=== PATIENT | female | born 1985 | race Caucasian/White ===

== ENCOUNTER 2018-10-07 13:37 | Inpatient (IN) | payer OTHER ==
[~2018-10-07] VITALS: Ht 154.9 cm; Wt 65.9 kg
--- NOTE | 2018-10-07 15:40 | NUR ---
Received patient from [facility] via gurney assisted with 2 maintenance carpenter. Patient is alert, awake and verbally responsive. Respiration are even and non labored. Complaining of abdominal pain 7 at this time will notify MD. Reorient patient is her room and bed function. Call light within reach. Will continue to monitor.
--- NOTE | 2018-10-07 16:14 | HP ---
Date/Time of Note Date/Time of Note DATE: 10/07/18 TIME: 16:11 Assessment/Plan VTE Prophylaxis Pharmacological prophylaxis: heparin Assessment/Plan Hospital Course 32 yo female with cholelithiasis and possible choledocholithiasisis - Will perform MRCP to guide intervention and confirm diagnosis - Given GB wall thickenign will give abx though not clearly infected - GI consulted HPI/ROS Admit Date/Time Admit Date/Time Oct 07, 2018 at 15:40 Hx of Present Illness 32 yo female tranferred for management of gall stones Has known cholelithiasis. Sounds like 2 years ago was admitted to a hospital for this however no surgery done. Has been well since. Over past week has developed RUQ pain and tenderness. Went to OSH ED were labs normal but RUQ showed gall bladder wall thickening, mildly dilated CBD. Transferred here for management PMH/Family/Social Past Medical History Medical History: no pertinent history, gallstones Past Surgical History Past Surgical Hx: no surgical history Social History Alcohol Use: none Drug Use: none Exam/Review of Systems Exam Constitutional: alert, oriented, well developed Psych: no complaints, nl mood/affect Head: normocephalic, atraumatic Eyes: nl conjunctiva, EOMI, nl lids, nl sclera, PERRL ENMT: nl external ears & nose, nl lips & teeth, nl nasal mucosa & septum Neck: supple, non-tender Respiratory: clear to auscultation, normal air movement Cardiovascular: regular rate and rhythm, nl pulses Gastrointestinal: soft, nl liver, spleen, non-tender Musculoskeletal: nl extremities to inspection Extremities: normal pulses Neurological: CUSTOMER DEVELOPMENT MANAGER II-XII intact, nl mental status, nl speech, nl strength Skin: nl turgor; No rash or lesions Lymph: nl lymph nodes JEFFERY MEADE MD Oct 07, 2018 16:14
[2018-10-07] MEDS ORDERED: NACL 0.9% 3 ML SYG IV SCH (16:30)
--- NOTE | 2018-10-07 16:45 | NUR ---
Pt. left the unit going to MRI with Lisa HOANG via [facility] assisted with transporter. Pt. is alert awake and verbally responsive. at bedside
[2018-10-07 16:51] VITALS: BP 102/61; PULSE 83; RESP 18
[2018-10-07] MEDS: HYDROmorphONE 0.5 MG/0.5 ML SYG IV PRN ×2 (17:31→22:35)
[2018-10-07] MEDS: SOD CHLORIDE 0.45% 1,000 ML IV SCH (17:37)
[2018-10-07] MEDS: CEFTRIAXONE 1 GM/50 ML (PMX) 50 ML IVPB SCH (17:37)
[2018-10-07 17:50] VITALS: Ht 154.9 cm; Wt 65.9 kg
--- NOTE | 2018-10-07 18:32 | NUR ---
Received a call from Dr. Quan and give an order to cancel the NPO order and consent for laparoscopic tomorrow. Addendum: 10/07/18 at 1854 by STEFF GAUTHIER RN correction Received a call from Dr. Walton not from Dr. Quan.
--- NOTE | 2018-10-07 18:48 | NUR ---
No significant changes noted. Pain medication given as ordered. Effective and tolerated well. head to toe skin assessment done. Will endorse accordingly
[2018-10-07 20:00] VITALS: BP 103/61; PULSE 102; RESP 18
[2018-10-08 02:00] VITALS: BP 93/56; PULSE 86; RESP 18
--- NOTE | 2018-10-08 07:46 | CONS ---
Date/Time of Note Date/Time of Note DATE: 10/08/18 TIME: 07:43 Assessment/Plan Assessment/Plan Assessment/Plan Cholelithiasis and choledocholithiasis. Plan: Patient will need ERCP. We will arrange for laparoscopic cholecystectomy after CBD cleared. I will follow with you Result Diagram: 10/08/18 0430 10/08/18 0430 Results 24hrs Laboratory Tests Test 10/08/18 04:30 White Blood Count 7.6 Red Blood Count 3.38 L Hemoglobin 9.9 L Hematocrit 30.0 L Mean Corpuscular Volume 88.8 Mean Corpuscular Hemoglobin 29.3 Mean Corpuscular Hemoglobin Concent 33.0 Red Cell Distribution Width 15.6 H Platelet Count 138 L Mean Platelet Volume 12.6 H Immature Granulocytes % 0.400 Neutrophils % 68.3 Lymphocytes % 14.4 L Monocytes % 16.3 H Eosinophils % 0.3 Basophils % 0.3 Nucleated Red Blood Cells % 0.0 Immature Granulocytes # 0.030 Neutrophils # 5.2 Lymphocytes # 1.1 Monocytes # 1.2 H Eosinophils # 0.0 Basophils # 0.0 Nucleated Red Blood Cells # 0.0 Sodium Level 137 Potassium Level 3.8 Chloride Level 105 Carbon Dioxide Level 27 Anion Gap 5 Blood Urea Nitrogen 3 L Creatinine 0.56 Est Glomerular Filtrat Rate mL/min > 60 Glucose Level 102 Calcium Level 8.6 Total Bilirubin 0.4 Direct Bilirubin 0.00 Indirect Bilirubin 0.4 Aspartate Amino Transf (AST/SGOT) 19 Alanine Aminotransferase (ALT/SGPT) 22 Alkaline Phosphatase 62 Total Protein 6.4 Albumin 3.4 Globulin 3.00 Albumin/Globulin Ratio 1.13 Consultation Date/Type/Reason Admit Date/Time Oct 07, 2018 at 15:40 Date of Consultation: Oct 08, 2018 Type of Consult General surgery Reason for Consultation Gallstones and choledocholithiasis Hx of Present Illness The patient is an otherwise healthy 32-year-old female who has known gallstones. She is transferred to this facility for continuance of care. There is a suspicion of choledocholithiasis. The patient underwent MRCP shortly after admission which showed multiple common duct stones as well as gallstones. She has had no fevers, chills or jaundice. Her LFTs are normal. Constitutional: no complaints Eyes: no complaints ENT: no complaints Respiratory: no complaints Cardiovascular: no complaints Gastrointestinal: pain (Epigastrium) Genitourinary: no complaints Musculoskeletal: no complaints Skin: no complaints Neurologic: no complaints Endocrine: no complaints Lymphatic: no complaints Psychological: no complaints Past Medical History Medical History: no pertinent history, gallstones Medications Current Medications Sodium Chloride 1,000 ml @ 75 mls/hr [id number] IV Last administered on 10/07/18at 17:37; Admin Dose 75 MLS/HR; Start 10/07/18 at 16:14 IV Flush (NS 3 ml) 3 ml PER PROTOCOL IV ; Start 10/07/18 at 16:30 Hydromorphone HCl (Dilaudid) 0.5 mg Q4H PRN IV SEVERE PAIN LEVEL 7-10 Last administered on 10/07/18at 22:35; Admin Dose 0.5 MG; Start 10/07/18 at 16:30 Ceftriaxone Sodium 50 ml @ 100 mls/hr Q24H IVPB Last administered on 10/07/18at 17:37; Admin Dose 100 MLS/HR; Start 10/07/18 at 16:30 Allergies: Coded Allergies: No Known Allergies (Verified Allergy, Unknown, 10/07/18) Past Surgical History Past Surgical Hx: no surgical history Family History Significant Family History: no pertinent family hx Social History Alcohol Use: none Smoking Status: Never smoker Drug Use: none Exam/Review of Systems Vital Signs Vitals Vital Signs Date Temp Pulse Resp B/P (MAP) Pulse Ox O2 O2 Flow FiO2 Time Delivery Rate 10/08/18 98.3 86 18 93/56 (68) 97 Room Air 02:00 Intake and Output 10/07/18 10/07/18 10/08/18 1414:59 22:59 06:59 IntakeIntake Total 200 ml 900 ml BalanceBalance 200 ml 900 ml Exam Constitutional: alert, oriented Psych: no complaints Head: normocephalic Eyes: nl conjunctiva ENMT: nl external ears & nose Neck: supple Respiratory: clear to auscultation Cardiovascular: regular rate and rhythm Gastrointestinal: soft Musculoskeletal: nl extremities to inspection Neurological: other (Speaks only [place]) Skin: nl turgor Lymph: nl lymph nodes Medications Medications Current Medications Sodium Chloride 1,000 ml @ 75 mls/hr [id number] IV Last administered on 10/07/18at 17:37; Admin Dose 75 MLS/HR; Start 10/07/18 at 16:14 IV Flush (NS 3 ml) 3 ml PER PROTOCOL IV ; Start 10/07/18 at 16:30 Hydromorphone HCl (Dilaudid) 0.5 mg Q4H PRN IV SEVERE PAIN LEVEL 7-10 Last administered on 10/07/18at 22:35; Admin Dose 0.5 MG; Start 10/07/18 at 16:30 Ceftriaxone Sodium 50 ml @ 100 mls/hr Q24H IVPB Last administered on 10/07/18at 17:37; Admin Dose 100 MLS/HR; Start 10/07/18 at 16:30 NGOZI URBAN MD Oct 08, 2018 07:46
[2018-10-08 07:50] VITALS: BP 88/53; PULSE 69; RESP 16
[2018-10-08] MEDS: ACETAMINOPHEN 325 MG TAB PO PRN (09:58)
[2018-10-08] MEDS: SOD CHLORIDE 0.45% 1,000 ML IV SCH ×2 (11:36→17:46)
[2018-10-08 14:36] VITALS: BP 105/59; PULSE 67; RESP 16
--- NOTE | 2018-10-08 14:38 | PN ---
Date/Time of Note Date/Time of Note DATE: 10/08/18 TIME: 14:37 Assessment/Plan VTE Prophylaxis Risk score (from Ns)>0 risk: 2 SCD applied (from Ns): Yes Pharmacological prophylaxis: heparin Lines/Catheters IV C[facility]ter [facility] (from [facility]): Peripheral IV Urinary Cath still in place: No Assessment/Plan Hospital Course 32 yo female with cholelithiasis and choledocholithiasisis - ERCP - Given GB wall thickenign will give abx though not clearly infected - GI consulted, plan for ERCP Result Diagram: 10/08/18 0430 10/08/18 0430 Results 24hrs Laboratory Tests Test 10/08/18 04:28 10/08/18 04:30 Iron Level 14 L Total Iron Binding Capacity 300 Percent Iron Saturation 5 L Ferritin 81.8 White Blood Count 7.6 Red Blood Count 3.38 L Hemoglobin 9.9 L Hematocrit 30.0 L Mean Corpuscular Volume 88.8 Mean Corpuscular Hemoglobin 29.3 Mean Corpuscular Hemoglobin Concent 33.0 Red Cell Distribution Width 15.6 H Platelet Count 138 L Mean Platelet Volume 12.6 H Immature Granulocytes % 0.400 Neutrophils % 68.3 Lymphocytes % 14.4 L Monocytes % 16.3 H Eosinophils % 0.3 Basophils % 0.3 Nucleated Red Blood Cells % 0.0 Immature Granulocytes # 0.030 Neutrophils # 5.2 Lymphocytes # 1.1 Monocytes # 1.2 H Eosinophils # 0.0 Basophils # 0.0 Nucleated Red Blood Cells # 0.0 Sodium Level 137 Potassium Level 3.8 Chloride Level 105 Carbon Dioxide Level 27 Anion Gap 5 Blood Urea Nitrogen 3 L Creatinine 0.56 Est Glomerular Filtrat Rate mL/min > 60 Glucose Level 102 Hemoglobin A1c 5.1 Calcium Level 8.6 Total Bilirubin 0.4 Direct Bilirubin 0.00 Indirect Bilirubin 0.4 Aspartate Amino Transf (AST/SGOT) 19 Alanine Aminotransferase (ALT/SGPT) 22 Alkaline Phosphatase 62 Total Protein 6.4 Albumin 3.4 Globulin 3.00 Albumin/Globulin Ratio 1.13 Subjective 24 Hr Interval Summary Free Text/Dictation MRCP shows choledocholithiasis, awaiting ERCP Exam/Review of Systems Vital Signs Vitals Vital Signs Date Temp Pulse Resp B/P (MAP) Pulse Ox O2 O2 Flow FiO2 Time Delivery Rate 10/08/18 98.2 69 16 88/53 (65) 95 Room Air 07:50 Intake and Output 10/07/18 10/07/18 10/08/18 1414:59 22:59 06:59 IntakeIntake Total 200 ml 900 ml BalanceBalance 200 ml 900 ml Exam Constitutional: alert, oriented, well developed Psych: no complaints, nl mood/affect Head: normocephalic, atraumatic Eyes: nl conjunctiva, EOMI, nl lids, nl sclera, PERRL ENMT: nl external ears & nose, nl lips & teeth, nl nasal mucosa & septum Neck: supple, non-tender Respiratory: clear to auscultation, normal air movement Cardiovascular: regular rate and rhythm, nl pulses Gastrointestinal: soft, nl liver, spleen, non-tender Musculoskeletal: nl extremities to inspection, nl gait and stance Extremities: normal pulses Neurological: QLIKVIEW DEVELOPER II-XII intact, nl mental status, nl speech, nl strength Skin: nl turgor; No rash or lesions Lymph: nl lymph nodes Medications Medications Current Medications Sodium Chloride 1,000 ml @ 75 mls/hr [id number] IV Last administered on 10/08/18at 11:36; Admin Dose 75 MLS/HR; Start 10/07/18 at 16:14 IV Flush (NS 3 ml) 3 ml PER PROTOCOL IV ; Start 10/07/18 at 16:30 Hydromorphone HCl (Dilaudid) 0.5 mg Q4H PRN IV SEVERE PAIN LEVEL 7-10 Last administered on 10/07/18at 22:35; Admin Dose 0.5 MG; Start 10/07/18 at 16:30 Ceftriaxone Sodium 50 ml @ 100 mls/hr Q24H IVPB Last administered on 10/07/18 at 17:37; Admin Dose 100 MLS/HR; Start 10/07/18 at 16:30 Acetaminophen (Tylenol Tab) 650 mg Q4H PRN PO MILD PAIN(1-3)OR ELEVATED TEMP Last administered on 10/08/18at 09:58; Admin Dose 650 MG; Start 10/08/18 at 09:30 Ferric Sodium Gluconate Complex 125 mg/Sodium Chloride 100 ml @ 100 mls/hr DAILY@1300 IVPB ; Start 10/09/18 at 13:00; Stop 10/11/18 at 13:59; Status JEFFERY GARNICA MD Oct 08, 2018 14:38
[2018-10-08] MEDS: HYDROmorphONE 0.5 MG/0.5 ML SYG IV PRN ×2 (15:15→20:11)
--- NOTE | 2018-10-08 15:48 | CONS ---
DATE OF ADMISSION: 10/07/2018 DATE OF CONSULTATION: TYPE OF CONSULTATION: Gastroenterology. Dear Dr. Blue: Thank you for asking me to see Mrs. Jordan in GI consultation. HISTORY OF PRESENT ILLNESS: The patient, as you know, is a 32-year-old female who developed abdominal pain mostly in the right upper quadrant. A week ago, she went to [facility]. From there, she was transferred to this hospital because of the insurance reasons. Nausea but no vomiting, no GI bleeding, no fever, no jaundice. She did a similar history of pain in the past. The patient is a poor historian. PAST MEDICAL HISTORY: No surgeries. REVIEW OF SYSTEM: Unremarkable. SOCIAL HISTORY: The patient does not smoke or drink. PHYSICAL EXAMINATION: GENERAL: The patient is a 32-year-old female who at this time she is alert. She is average built. VITAL SIGNS: She is afebrile. CARDIOVASCULAR: Normal heart sounds. RESPIRATORY: Normal breath sounds. ABDOMEN: Showed evidence of a soft abdomen with a very minimal right upper quadrant tenderness. VITAL SIGNS: Temperature is 98.2, blood pressure 88/53. LABORATORY WORKUP: WBC 7600, hemoglobin 9.9. BUN 33, creatinine 0.56. Total bilirubin 0.4, AST is 19, ALT 22, alkaline phosphatase 62. CLINICAL IMPRESSION: The patient has acute cholecystitis with choledocholithiasis. PLAN: At this time, I recommend ERCP and I described the procedure through an interpreter deaf both from the patient and the patient's . They understood and they agreed for ERCP. Once again, Dr. Blue, thank you for this consultation. Dictated By: RADHA COLIN/DELIO Conf#: [id number] DID#: [id number] CC: ELIF SHIRLEY; PHILLY BLUE MD;*EndCC*
[2018-10-08] MEDS: CEFTRIAXONE 1 GM/50 ML (PMX) 50 ML IVPB SCH (16:08)
[2018-10-08] MEDS: SOD FERRIC GLUC COMPLX 125 MG in SOD CHLORIDE 0.9% 100 ML IVPB SCH (16:57)
--- NOTE | 2018-10-08 18:41 | NUR ---
Patient alert oriented x4. patient's at bedside and able to translate. patient complains of headache and pain, medication given for pain management. patient will be going to ERCP procedure tomorrow, PT and INR value reported to MD, no changes will be made. patient will be placed NPO after midnight and currently on clear liquid diet and tolerating well. will endorse to hourly shift manager nurse. Fall precaution in place, call light within reach.
[2018-10-08 21:06] VITALS: BP_SYST 107; BP_SYST 87; BP_DIAS 51; BP_DIAS 68; PULSE 60; RESP 20
[2018-10-09] VITALS (15 sets, daily range): BP systolic 82–136; BP diastolic 47–77; PULSE 68–85; RESP 18–25
[2018-10-09] MEDS: SOD CHLORIDE 0.45% 1,000 ML IV SCH ×2 (06:21→20:39)
--- NOTE | 2018-10-09 07:34 | QN ---
Documentation Comment Clinically stable Awaiting ERCP NGOZI URBAN MD Oct 09, 2018 07:34
[2018-10-09] MEDS: HYDROmorphONE 0.5 MG/0.5 ML SYG IV PRN ×2 (11:15→20:45)
[2018-10-09] MEDS: PIPER-TAZO 3.375 GM IV (PMX) 100 ML IVPB SCH ×3 (12:45→23:36)
--- NOTE | 2018-10-09 12:47 | PN ---
Date/Time of Note Date/Time of Note DATE: 10/09/18 TIME: 12:47 Objective Vitals Vital Signs Date Temp Pulse Resp B/P (MAP) Pulse Ox O2 O2 Flow FiO2 Time Delivery Rate 10/09/18 98.3 77 18 121/67 99 08:00 (85) 10/08/18 Room Air 14:36 Intake and Output 10/08/18 10/08/18 10/09/18 1515:00 23:00 07:00 IntakeIntake Total 100 ml 690 ml 900 ml BalanceBalance 100 ml 690 ml 900 ml Results Result Diagram: 10/08/18 0430 10/08/18 043 Medications Medications Current Medications Sodium Chloride 1,000 ml @ 75 mls/hr [id number] IV Last administered on 10/09/18at 06:21; Admin Dose 75 MLS/HR; Start 10/07/18 at 16:14 IV Flush (NS 3 ml) 3 ml PER PROTOCOL IV ; Start 10/07/18 at 16:30 Hydromorphone HCl (Dilaudid) 0.5 mg Q4H PRN IV SEVERE PAIN LEVEL 7-10 Last administered on 10/09/18at 11:15; Admin Dose 0.5 MG; Start 10/07/18 at 16:30 Acetaminophen (Tylenol Tab) 650 mg Q4H PRN PO MILD PAIN(1-3)OR ELEVATED TEMP Last administered on 10/08/18at 09:58; Admin Dose 650 MG; Start 10/08/18 at 09:30 Ferric Sodium Gluconate Complex 125 mg/Sodium Chloride 100 ml @ 100 mls/hr DAILY@1300 IVPB Last administered on 10/08/18at 16:57; Admin Dose 100 MLS/HR; Start 10/08/18 at 17:00; Stop 10/10/18 at 13:59 Piperacillin Sod/ Tazobactam Sod 100 ml @ 200 mls/hr Q6 IVPB ; Start 10/09/18 at 12:00 VTE Prophylaxis Risk score (from Nsg)>0 risk: 1 SCD applied (from Nsg): Yes Lines/Catheters IV Catheter Type: [place] in Place: No Assessment/Plan Hospital Course Subjective Patient still having abdominal pain and headache Objective Physical exam General: Patient is laying in bed and answers questions appropriately Mentation: Patient is alert and oriented 4, Head: Normocephalic atraumatic Eyes: EOMI, pupils reactive to light Neck: Supple, nontender, midline Respiratory: Clear to auscultation bilaterally Cardiovascular: regular rate, no obvious murmurs Gastrointestinal: Right upper quadrant tenderness palpation, bowel sounds heard. Neurological: Moves all extremities spontaneously Skin: No new skin lesions Assessment and plan Cholelithiasis with choledocholithiasis -GI on board -ERCP planned -Some gallbladder wall thickening, and on antibiotics -General surgery on board Cholelithiasis -No clear cholecystitis, however patient clearly having choledocholithiasis due to multiple stones -General surgery for possible of gallbladder after ERCP questionable Abdominal pain -Secondary to above cholelithiasis and choledocholithiasis Anemia -Mild, stable, monitor -Iron deficiency, given iron supplements Disposition -ERCP today FANTASMA FIGUEROA Oct 09, 2018 12:47
--- NOTE | 2018-10-09 13:50 | PREAC ---
Date/Time of Note Date/Time of Note DATE: 10/09/18 TIME: 13:45 Anesthesia Eval and Record Evaluation Time Pre-Procedure Interview DATE: 10/09/18 TIME: 13:45 Age 32 Sex female NPO: 8 hrs Preoperative diagnosis Cholelithiasis Planned procedure ERCP Past Medical History Past Medical History: Includes Heme: Anemia, Thrombocytopenia Surgery & Anesthesia Issues No known issue Meds Anticoagulation: No Beta Asif within 24 hr: No Reason Beta Asif not given: Pt. not on B-Asif Current Medications Sodium Chloride 1,000 ml @ 75 mls/hr [id number] IV Last administered on 10/09/18at 06:21; Admin Dose 75 MLS/HR; Start 10/07/18 at 16:14 IV Flush (NS 3 ml) 3 ml PER PROTOCOL IV ; Start 10/07/18 at 16:30 Hydromorphone HCl (Dilaudid) 0.5 mg Q4H PRN IV SEVERE PAIN LEVEL 7-10 Last administered on 10/09/18at 11:15; Admin Dose 0.5 MG; Start 10/07/18 at 16:30 Acetaminophen (Tylenol Tab) 650 mg Q4H PRN PO MILD PAIN(1-3)OR ELEVATED TEMP Last administered on 10/08/18at 09:58; Admin Dose 650 MG; Start 10/08/18 at 09:30 Ferric Sodium Gluconate Complex 125 mg/Sodium Chloride 100 ml @ 100 mls/hr DAILY@1300 IVPB Last administered on 10/08/18at 16:57; Admin Dose 100 MLS/HR; Start 10/08/18 at 17:00; Stop 10/10/18 at 13:59 Piperacillin Sod/ Tazobactam Sod 100 ml @ 200 mls/hr Q6 IVPB Last administered on 10/09/18at 12:45; Admin Dose 200 MLS/HR; Start 10/09/18 at 12:00 Meds reviewed: Yes Allergies Coded Allergies: No Known Allergies (Verified Allergy, Unknown, 10/07/18) Allergies Reviewed: Yes Labs/Studies Labs Reviewed: Reviewed by anesthesiologist Result Diagram: 10/08/18 0430 10/08/18 0430 test: Negative Studies: ECG (n/a), CXR (n/a) Pre-procedure Exam Last vitals Vital Signs Date Temp Pulse Resp B/P (MAP) Pulse Ox O2 O2 Flow FiO2 Time Delivery Rate 10/09/18 98.3 77 18 121/67 99 08:00 (85) 10/08/18 Room Air 14:36 Airway: Adequate mouth opening, Adequate thyromental dist Mallampati: Mallampati II Teeth: Normal Lung: Normal Heart: Normal ASA Physical Status ASA physical status: 2 Emergency: E Planned Anesthetic General/MAC: ETT Planned Pain Management Parenteral pain med Pre-operative Attestations Prior to commencing anesthesia and surgery, the patient was re-evaluated, there was verification of: *The patient's identity *The results of appropriate recent lab work and preoperative vital signs *The above evaluation not changing prior to induction *Anesthetic plan, risk benefits, alternative and complications discussed with patient/family; questions answered; patient/family understands, accepts and wishes to proceed. KAITLIN BAEZA MD Oct 09, 2018 13:50
[2018-10-09] MEDS ORDERED: ROCURONIUM 50 MG INJ ONE (13:54)
[2018-10-09] MEDS ORDERED: CEFAZOLIN 1 GM INJ ONE (13:54)
[2018-10-09] MEDS ORDERED: FENTAnyl 50 MCG/ML VIAL ONE (13:54)
[2018-10-09] MEDS ORDERED: MIDAZOLAM 1 MG/ML 2 ML INJ ONE (13:54)
[2018-10-09] MEDS ORDERED: PROPOFOL 20 ML ONE (13:54)
[2018-10-09] MEDS ORDERED: ONDANSETRON 4 MG INJ IV PRN ×2 (14:00→22:00)
[2018-10-09] MEDS ORDERED: MEPERIDINE 25 MG INJ IV PRN (14:00)
[2018-10-09] MEDS ORDERED: HYDROmorphONE 1 MG/5 ML IV SYRINGE IV PRN ×3 (14:00)
[2018-10-09] MEDS ORDERED: LABETALOL HCL 20MG INJ IV PRN (14:00)
[2018-10-09] MEDS ORDERED: METOCLOPRAMIDE 10 MG INJ IV PRN (14:00)
[2018-10-09] MEDS ORDERED: DIPHENHYDRAMINE 50 MG INJ IV PRN (14:00)
[2018-10-09] MEDS ORDERED: FENTAnyl 50 MCG/ML VIAL IV PRN ×3 (14:00)
[2018-10-09] MEDS ORDERED: hydrALAzine 20 MG INJ IV PRN (14:00)
[2018-10-09] MEDS ORDERED: EPHEDrine SULFATE 50 MG/5 ML SYG IV PRN (14:00)
[2018-10-09] MEDS ORDERED: LIDOCAINE 2% (SDV) 5 ML INJ ONE (15:30)
[2018-10-09] MEDS ORDERED: NEOSTIGMINE 3 MG/3 ML SYRINGE ONE (15:30)
[2018-10-09] MEDS ORDERED: ONDANSETRON 4 MG INJ ONE (15:30)
[2018-10-09] MEDS ORDERED: GLYCOPYRROLATE 1 MG INJ ONE (15:30)
--- NOTE | 2018-10-09 15:34 | OPR ---
Date/Time of Note Date/Time of Note DATE: 10/09/18 TIME: 15:31 Operative Report Procedure Date: Oct 09, 2018 Preoperative Diagnosis cbd stones Postoperative Diagnosis cbd stones Operation/Procedure Performed ercp sphincterotomy cbd stent placement Surgeon see signature line Enterprise Solutions Architect none Anesthesia Type: general Anesthesiologist: BRUNILDA REICH MD Estimated Blood Loss: none Transfusion none Specimen none Grafts/Implants none Tubes/Drains none Complications none Pt Condition Post Procedure: stable Disposition: PACU Indications cbd stones Procedure Description ercp done sphincterotomy done stones could not be removed despite balloon sweepin and lithotrypsy RADHA NELSON MD Oct 09, 2018 15:34
--- NOTE | 2018-10-09 15:48 | NUR ---
NURSING RR RECEIVED PT FROM OR S/P ERCP NOT IN ANY DISTRESS .PT ABDOMEN SOFT AND NOT DISTENDED .IV TO L AC G20 NEEDLE WITH LR INFUSING WELL .DENIES [place] PAIN AT THIS MOMENT .
--- NOTE | 2018-10-09 15:54 | PAC ---
Date/Time of Note Date/Time of Note DATE: 10/09/18 TIME: 15:54 Post-Anesthesia Notes Post-Anesthesia Note Last documented vital signs Vital Signs Date Temp Pulse Resp B/P (MAP) Pulse Ox O2 O2 Flow FiO2 Time Delivery Rate 10/09/18 98.3 77 18 121/67 99 08:00 (85) 10/08/18 Room Air 14:36 Activity: WNL Respiratory function: WNL Cardiovascular function: WNL Mental status: Baseline Pain reasonably controlled: Yes Hydration appropriate: Yes Nausea/Vomiting absent: Yes Comments P:126/56,pulse:78, spo2:100%, T:98,8 BRUNILDA REICH MD Oct 09, 2018 15:54
--- NOTE | 2018-10-09 16:12 | NUR ---
SS Note: Consult Pt's spouse Robbie Tsai contacted this board writer. He stated he has taken time off work due to pt's hospitalization and is requesting a letter for his job stating that his has been hospitalized and that he's been at bedside caring for spouse during hospitalization. [place] notified attending Dr. Parker who will assist with providing letter. Addendum: 10/10/18 at 1033 by LUIS NELSON CALEB called Dr. Parker's office, it is closed d/t holiday today. ENVIRONMENTAL SCIENCE INSTRUCTOR to leave handoff for weekday SW to endorse letter. Addendum: 10/10/18 at 1418 by LUIS NELSON ENVIRONMENTAL SCIENCE INSTRUCTOR spoke with Dr. Parker who states he provided pt with note on a prescription pad.
--- NOTE | 2018-10-09 16:33 | GILP ---
DATE OF PROCEDURE: PROCEDURE: ERCP. PREOPERATIVE DIAGNOSIS: Choledocholithiasis. POSTOPERATIVE DIAGNOSIS: Choledocholithiasis. DESCRIPTION OF PROCEDURE: After the informed written consent was obtained, the patient was asked to lie on the left lateral side. The patient was intubated by anesthesiologist, Dr. Aviles. While the patient was in prone position, Olympus video side-viewing duodenoscope was inserted into the orophary nx, then into the esophagus, subsequently into the stomach and then into the duodenum. The duodenum appeared normal. The ampulla was located in normal location with normal morphology with some edema a nd some erythema noted at the papillary opening. At this time by using the Dreamtome, cannulation of the common bile duct was performed. Multiple large common bile duct stones were noted. Most of the stones were triangular and large stones. Sphincterotomy was performed. About a 12 mm cut of the am [place]cca was made. Following this cut, the Dreamtome was removed. A balloon was inserted over the guid e wire. Attempts were made to remove the stones, but they were not able to be removed because the st ones were large and they were triangular in shape. Subsequently, a lithotripter was inserted over th e wire into the common hepatic duct and attempts were made to grab the common bile duct stones and th ey could not be grabbed by the stones were large. At this time, the lithotripter was removed. Ballo on was inserted again. Balloon sweeping was attempted again and then it failed again. At this time, 10 x 7 Perry type of endobiliary prosthesis was inserted into the common bile duct across the am mecca into the duodenum and the procedure was terminated. PLAN: I recommend proceed with a laparoscopic cholecystectomy and we can remove the stones at a late r date. Dictated By: RADHA NELSON MD NC/NTS Conf#: [id number] DID#: [id number] CC: JEFFERY MEADE MD; ELIF SHIRLEY; FANTASMA FIGUEROA MD; PHILLY SERRANO MD;*[facility]*
--- NOTE | 2018-10-09 16:42 | NUR ---
TRANSFER PT TRANSFER BACK TO ROOM IN STABLE CONDITION REPORT GIVEN TO SHAMIR JOHNSON .CARE PROVIDED PER [facility] STANDARDS.
--- NOTE | 2018-10-09 16:53 | NUR ---
Came back from post ERCP, drowsiness and sleepy at this time. No facial grimacing, VS within range will continue POC
[2018-10-09] MEDS: SOD FERRIC GLUC COMPLX 125 MG in SOD CHLORIDE 0.9% 100 ML IVPB SCH (17:06)
--- NOTE | 2018-10-09 18:41 | NUR ---
POD # 0 - ERCP- Pt seems to be drowsy after the procedure, able to communicate needs no sob , no acute distress on room air saturation 96% encouraged deep breathing exercises of lung expansion IS provided. On antibiotics tx IVPB no ase, possible reschedule for LAP flower d/t unable remove the big stones. VS within range all needs attended will continue POC endorsed.
[2018-10-09] MEDS: ACETAMINOPHEN 325 MG TAB PO PRN (23:36)
[2018-10-10] VITALS (15 sets, daily range): BP systolic 97–124; BP diastolic 55–74; PULSE 46–74; RESP 14–25
[2018-10-10] MEDS: SOD CHLORIDE 0.45% 1,000 ML IV SCH ×2 (02:11→23:05)
[2018-10-10] MEDS: PIPER-TAZO 3.375 GM IV (PMX) 100 ML IVPB SCH ×4 (06:17→23:04)
[2018-10-10] MEDS: ACETAMINOPHEN 325 MG TAB PO PRN ×2 (06:23→23:09)
--- NOTE | 2018-10-10 06:25 | NUR ---
No acute changes during shift. Pt safe and free from injury. Pt is A&Ox4 and able to make needs known. Ambulatory with assist. Pt is currently NPO. Pt pain assessed and controlled throughout shift. Denies any nausea. Pt is currently laying in bed comfortably. Bed alarm on, call light within reach. Will continue to monitor.
--- NOTE | 2018-10-10 10:59 | NUR ---
PATIENT WAS PICKED UP BY TRANSPORT GOING TO OR. NO SOB OR DISTRESS. IV PATENT AND INTACT. REPORT GIVEN TO KELLIE JOHNSON
--- NOTE | 2018-10-10 11:17 | HPN ---
Date/Time of Note Date/Time of Note DATE: 10/10/18 TIME: 11:17 Interval H&P Admission Note Pt. seen H&P reviewed: Systems changes noted below Patient is status post ERCP with stent placement NGOZI URBNA MD Oct 10, 2018 11:17
--- NOTE | 2018-10-10 11:21 | PREAC ---
Date/Time of Note Date/Time of Note DATE: 10/10/18 TIME: 11:21 Anesthesia Eval and Record Evaluation Time Pre-Procedure Interview DATE: 10/10/18 TIME: 11:21 Age 32 Sex female NPO: 8 hrs Preoperative diagnosis Cholelithiasis Planned procedure Lap Laura Past Medical History Past Medical History: None Surgery & Anesthesia Issues No known issue Meds Anticoagulation: No Beta Asif within 24 hr: No Reason Beta Asif not given: Pt. not on B-Asif Current Medications Sodium Chloride 1,000 ml @ 75 mls/hr [id number] IV Last administered on 10/10/18at 02:11; Admin Dose 75 MLS/HR; Start 10/07/18 at 16:14 IV Flush (NS 3 ml) 3 ml PER PROTOCOL IV ; Start 10/07/18 at 16:30 Hydromorphone HCl (Dilaudid) 0.5 mg Q4H PRN IV SEVERE PAIN LEVEL 7-10 Last administered on 10/09/18at 20:45; Admin Dose 0.5 MG; Start 10/07/18 at 16:30 Acetaminophen (Tylenol Tab) 650 mg Q4H PRN PO MILD PAIN(1-3)OR ELEVATED TEMP Last administered on 10/10/18at 06:23; Admin Dose 650 MG; Start 10/08/18 at 09:30 Ferric Sodium Gluconate Complex 125 mg/Sodium Chloride 100 ml @ 100 mls/hr DAILY@1300 IVPB Last administered on 10/09/18at 17:06; Admin Dose 100 MLS/HR; Start 10/08/18 at 17:00; Stop 10/10/18 at 13:59 Piperacillin Sod/ Tazobactam Sod 100 ml @ 200 mls/hr Q6 IVPB Last administered on 10/10/18at 06:17; Admin Dose 200 MLS/HR; Start 10/09/18 at 12:00 Ondansetron HCl (Zofran Inj) 4 mg Q6H PRN IV NAUSEA AND/OR VOMITING Last administered on 10/09/18at 22:34; Admin Dose 4 MG; Start 10/09/18 at 22:00 Meds reviewed: Yes Allergies Coded Allergies: No Known Allergies (Verified Allergy, Unknown, 10/07/18) Allergies Reviewed: Yes Labs/Studies Labs Reviewed: Reviewed by anesthesiologist Result Diagram: 10/10/18 0555 10/10/18 0555 Laboratory Tests 10/10/18 05:55 test: Negative Studies: ECG Pre-procedure Exam Last vitals Vital Signs Date Temp Pulse Resp B/P (MAP) Pulse Ox O2 O2 Flow FiO2 Time Delivery Rate 10/10/18 97.3 58 18 106/65 96 08:22 (79) 10/09/18 Room Air 16:56 10/09/18 2.0 16:40 Airway: Adequate mouth opening, Adequate thyromental dist Mallampati: Mallampati II Teeth: Normal Lung: Normal Heart: Normal ASA Physical Status ASA physical status: 2 Emergency: None Planned Anesthetic General/MAC: ETT Nerve block: TAP (bilateral) Planned Pain Management Single shot nerve block Pre-operative Attestations Prior to commencing anesthesia and surgery, the patient was re-evaluated, there was verification of: *The patient's identity *The results of appropriate recent lab work and preoperative vital signs *The above evaluation not changing prior to induction *Anesthetic plan, risk benefits, alternative and complications discussed with patient/family; questions answered; patient/family understands, accepts and wishes to proceed. SILVERIO DEUTSCH Oct 10, 2018 11:21
[2018-10-10] MEDS ORDERED: DIPHENHYDRAMINE 50 MG INJ IV PRN (11:30)
[2018-10-10] MEDS ORDERED: MEPERIDINE 25 MG INJ IV PRN (11:30)
[2018-10-10] MEDS ORDERED: HYDROmorphONE 1 MG/5 ML IV SYRINGE IV PRN ×3 (11:30)
[2018-10-10] MEDS ORDERED: FENTAnyl 50 MCG/ML VIAL IV PRN (11:30)
[2018-10-10] MEDS ORDERED: ONDANSETRON 4 MG INJ IV PRN ×2 (11:30→13:00)
[2018-10-10] MEDS ORDERED: METOCLOPRAMIDE 10 MG INJ IV PRN (11:30)
[2018-10-10] MEDS ORDERED: ALBUTEROL 0.083% (NEB) 2.5 MG/3 ML AMP HHN PRN (11:30)
[2018-10-10] MEDS ORDERED: FENTAnyl 50 MCG/ML VIAL ONE (11:52)
[2018-10-10] MEDS ORDERED: ROPIVACAINE 0.5 % 30 ML VIAL ONE (11:53)
[2018-10-10] MEDS ORDERED: BUPIVACAINE 0.5%/EPI (SDV) 30 ML INJ ONE (12:07)
[2018-10-10] MEDS ORDERED: ROCURONIUM 50 MG INJ ONE (12:23)
[2018-10-10] MEDS ORDERED: LIDOCAINE 100 MG SYRINGE ONE (12:23)
[2018-10-10] MEDS ORDERED: PROPOFOL 20 ML ONE (12:23)
[2018-10-10] MEDS ORDERED: NEOSTIGMINE 3 MG/3 ML SYRINGE ONE (12:23)
[2018-10-10] MEDS ORDERED: CEFAZOLIN 1 GM INJ ONE (12:23)
[2018-10-10] MEDS ORDERED: SUCCINYLCHOLINE CHLORIDE 100 MG/5 ML SYG IV ONE (12:23)
[2018-10-10] MEDS ORDERED: GLYCOPYRROLATE 1 MG INJ ONE (12:23)
--- NOTE | 2018-10-10 12:50 | PN ---
Date/Time of Note Date/Time of Note DATE: 10/10/18 TIME: 12:49 Objective Vitals Vital Signs Date Temp Pulse Resp B/P (MAP) Pulse Ox O2 O2 Flow FiO2 Time Delivery Rate 10/10/18 97.3 58 18 106/65 96 08:22 (79) 10/09/18 Room Air 16:56 10/09/18 2.0 16:40 Intake and Output 10/09/18 10/09/18 10/10/18 1515:00 23:00 07:00 IntakeIntake Total 550 ml 300 ml 975 ml BalanceBalance 550 ml 300 ml 975 ml Results Result Diagram: 10/10/18 0555 10/10/18 0555 Medications Medications Current Medications Sodium Chloride 1,000 ml @ 75 mls/hr [id number] IV Last administered on 10/10/18at 02:11; Admin Dose 75 MLS/HR; Start 10/07/18 at 16:14 IV Flush (NS 3 ml) 3 ml PER PROTOCOL IV ; Start 10/07/18 at 16:30 Hydromorphone HCl (Dilaudid) 0.5 mg Q4H PRN IV SEVERE PAIN LEVEL 7-10 Last administered on 10/09/18at 20:45; Admin Dose 0.5 MG; Start 10/07/18 at 16:30 Acetaminophen (Tylenol Tab) 650 mg Q4H PRN PO MILD PAIN(1-3)OR ELEVATED TEMP Last administered on 10/10/18at 06:23; Admin Dose 650 MG; Start 10/08/18 at 09:30 Ferric Sodium Gluconate Complex 125 mg/Sodium Chloride 100 ml @ 100 mls/hr DAILY@1300 IVPB Last administered on 10/09/18at 17:06; Admin Dose 100 MLS/HR; Start 10/08/18 at 17:00; Stop 10/10/18 at 13:59 Piperacillin Sod/ Tazobactam Sod 100 ml @ 200 mls/hr Q6 IVPB Last administered on 10/10/18at 06:17; Admin Dose 200 MLS/HR; Start 10/09/18 at 12:00 Ondansetron HCl (Zofran Inj) 4 mg Q6H PRN IV NAUSEA AND/OR VOMITING Last administered on 10/09/18at 22:34; Admin Dose 4 MG; Start 10/09/18 at 22:00 Hydromorphone HCl (Dilaudid) 0.2 mg PACU PRN IV MILD PAIN LEVEL 1-3; Start 10/10/18 at 11:30; Stop 10/10/18 at 15:00 Hydromorphone HCl (Dilaudid) 0.4 mg PACU PRN IV MODERATE PAIN LEVEL 4-6; Start 10/10/18 at 11:30; Stop 10/10/18 at 15:00 Hydromorphone HCl (Dilaudid) 0.6 mg PACU PRN IV SEVERE PAIN LEVEL 7-10; Start 10/10/18 at 11:30; Stop 10/10/18 at 15:00 Fentanyl (Sublimaze) 25 mcg PACU ORDER PRN IV MILD PAIN LEVEL 1-3; Start 10/10/18 at 11:30; Stop 10/10/18 at 15:00 Fentanyl (Sublimaze) 50 mcg PACU ORDER PRN IV MODERATE PAIN LEVEL 4-6; Start 10/10/18 at 11:30; Stop 10/10/18 at 15:00 Ondansetron HCl (Zofran Inj) 4 mg PACU ORDER PRN IV NAUSEA AND/OR VOMITING; Start 10/10/18 at 11:30; Stop 10/10/18 at 15:00 Metoclopramide HCl (Reglan) 10 mg PACU ORDER PRN IV NAUSEA AND/OR VOMITING; Start 10/10/18 at 11:30; Stop 10/10/18 at 15:00 Albuterol (Proventil 0.083% (Neb)) 2.5 mg PACU ORDER PRN HHN WHEEZING; Start 10/10/18 at 11:30; Stop 10/10/18 at 15:00 Meperidine HCl (Demerol) 25 mg PACU ORDER PRN IV POST OPERATIVE SHIVERING; Start 10/10/18 at 11:30; Stop 10/10/18 at 15:00 Diphenhydramine HCl (Benadryl) 25 mg PACU ORDER PRN IV PRURITUS; Start 10/10/18 at 11:30; Stop 10/10/18 at 15:00 VTE Prophylaxis Risk score (from Ns)>0 risk: 3 SCD applied (from Ns): Yes Lines/Catheters IV Catheter Type: Fulton in Place: No Assessment/Plan Hospital Course Subjective patient awaiting surgery Objective Physical exam General: Patient is laying in bed and answers questions appropriately Mentation: Patient is alert and oriented 4, Head: Normocephalic atraumatic Eyes: EOMI, pupils reactive to light Neck: Supple, nontender, midline Respiratory: Clear to auscultation bilaterally Cardiovascular: regular rate, no obvious murmurs Gastrointestinal: mild tenderness to palpation, bowel sounds heard. Neurological: Moves all extremities spontaneously Skin: No new skin lesions Assessment and plan Cholelithiasis with choledocholithiasis -GI on board -ERCP done, stent placed, but could not get stones due to large size and irregular, triangular shape. -Some gallbladder wall thickening, and on antibiotics -General surgery on board Cholelithiasis -No clear cholecystitis, however patient clearly having choledocholithiasis due to multiple stones -General surgery to remove gallbladder today Abdominal pain -Secondary to above cholelithiasis and choledocholithiasis Anemia -Mild, stable, monitor -Iron deficiency, given iron supplements Disposition -cholecystectomy today FANTASMA FIGUEROA Oct 10, 2018 12:50
--- NOTE | 2018-10-10 12:55 | OPR ---
Date/Time of Note Date/Time of Note DATE: 10/10/18 TIME: 12:51 Operative Report Procedure Date: Oct 10, 2018 Preoperative Diagnosis Cholecystitis and cholelithiasis Postoperative Diagnosis Cholecystitis and cholelithiasis Operation/Procedure Performed Laparoscopic cholecystectomy Surgeon Kameron Urban MD Mule Spinner None Anesthesia Type: general Anesthesiologist: SILVERIO DEUTSCH Estimated Blood Loss: other (Less than 20 cc) Transfusion none Specimen Gallbladder Grafts/Implants none Tubes/Drains None Complications none Pt Condition Post Procedure: stable Disposition: PACU Indications Cholecystitis, cholelithiasis and choledocholithiasis Procedure Description Satisfactory general endotracheal anesthesia was achieved, the abdomen was prepped and draped in the usual fashion. The abdomen was insufflated with carbon dioxide through an umbilical Veress needle to 15 mmHg pressure. The Veress needle was removed and the umbilical incision extended to 5 mm through which a 5 mm trocar was placed. A 5 mm 0 degree lens was placed. Laparoscopy showed a distended gallbladder which was slightly inflamed. Under direct visualization a 12 mm epigastric trocar was placed as well as 2 more 5 mm right lateral abdominal trochars. The dome of the gallbladder was grasped and retracted superiorly. Malhotra's pouch was grasped and retracted inferolateral ly. The hepatoduodenal ligament was carefully dissected. The cystic duct was then triply hemoclipped and divided high at the junction of the gallbladder and the cystic duct. Similarly the cystic artery was dissected posteriorly and triply hemoclipped and divided between clips. The gallbladder was then dissected from below using electrocautery dissection and placed fully intact into an Endo Catch removed by the epigastric route. Hemostasis of the liver bed was made complete with electrocautery and irrigant now returned clear. The abdomen was then desufflated and the trochars were removed. The fascia of the epigastrium was closed with 2 sutures of 0 Vicryl. The skin punctures were then closed with martin. Sponge and needle counts were reported as correct x2. KAMERON URBAN MD Oct 10, 2018 12:55
--- NOTE | 2018-10-10 12:58 | NUR ---
RECEIVED RESPONSIVE TO VIGOROUS STIMULATION, OXYGEN MASK ON BREATHING WITH EASE. ABDOMINAL INCISIONS X 4 SITES CLEAR WITH BAND AIDS IN PLACE, RECEIVED BILATERAL TAP BLOCKS PER DR DEUTSCH. DR URBAN IN AND STATE HE WILL TALK TO THE SPOUSE.
[2018-10-10] MEDS ORDERED: OXYCODONE/ACETAMINOPHEN (5/325) TAB PO PRN ×2 (13:00)
[2018-10-10] MEDS ORDERED: morphine 4 MG/ML VIAL IV PRN (13:00)
[2018-10-10] MEDS: FENTAnyl 50 MCG/ML VIAL IV PRN ×4 (13:16→13:40)
--- NOTE | 2018-10-10 13:29 | NUR ---
MEDICATED FOR PAIN. SPOUSE ISAIAS UPDATED ON STATUS AND MADE AWARE HE CAN COME IN TO PACU. BREATHING WITH EASE.
--- NOTE | 2018-10-10 14:00 | NUR ---
FULLY AWAKE AND ALERT, STATED SHE FEELS BETTER, PAIN IS TOLERABLE VERY MINIMAL. NO S/S BLEEDING. SPOKE TO SPOUSE, WAITING IN HER ROOM 1288. STABLE, BREATHING WITH EASE ON ROOM AIR. REPORT TO ROSALVA JOHNSON.
--- NOTE | 2018-10-10 14:26 | NUR ---
AWAKE ALERT AND COMFORTABLE. FOR TRANSFER BACK TO ROOM, WAITING FIR TRANSPORT. NO S/S BLEEDING.
--- NOTE | 2018-10-10 14:44 | NUR ---
PATIENT CAME BACK FROM OR, ALERT AND ORIENTED, ASSESSED LAP SITES, NO BLEEDING NOTED, AT THE BEDSIDE.
[2018-10-10] MEDS: SOD FERRIC GLUC COMPLX 125 MG in SOD CHLORIDE 0.9% 100 ML IVPB SCH (14:49)
[2018-10-10] MEDS: HYDROmorphONE 0.5 MG/0.5 ML SYG IV PRN ×2 (16:39→20:32)
--- NOTE | 2018-10-10 18:44 | NUR ---
NURSE NOTES: patient alert and oriented x 4, able to make needs known no changes in LOC or mentation. No0 SOB or distress. Assessed and reassessed for pain, medicated with pain medications as ordered, stated relief. Tolerated well regular diet, no nausea/ vomiting noted. IV patent and intact. No bleeding noted on 4 lap sites. stayed at the bedside. prescription from Dr. Parker was handed to for patient's work excuse letter. Safety precautions observed, hourly rounding done, bed alarm and bed brakes on for safety. will continue to monitor. will endorse accordingly to next shift for continuity of care.
[2018-10-11 02:00] VITALS: BP 106/58; PULSE 59; RESP 18
[2018-10-11] MEDS: HYDROmorphONE 0.5 MG/0.5 ML SYG IV PRN ×4 (05:17→22:43)
[2018-10-11] MEDS: PIPER-TAZO 3.375 GM IV (PMX) 100 ML IVPB SCH ×3 (05:18→17:19)
--- NOTE | 2018-10-11 05:26 | NUR ---
No acute changes during shift. Pt safe and free from injury. Pt slept through night with at bedside. Pt is A&Ox4 and able to make needs known. Ambulatory with assist. Pt is tolerating regular diet. Pt pain assessed and controlled throughout shift. Denies any nausea. Pt is currently sleeping comfortably. Bed alarm on, call light within reach. Will continue to monitor.
[2018-10-11 08:12] VITALS: BP 92/50; PULSE 52; RESP 18
[2018-10-11 09:28] VITALS: BP 125/75; PULSE 53; RESP 18
--- NOTE | 2018-10-11 12:10 | QN ---
Documentation Comment Postoperative day #1 Symptomatically improved Abdominal examination is benign. LFTs are normal. Cleared for discharge home today. Office follow-up 1 week for staple removal NGOZI URBAN MD Oct 11, 2018 12:10
--- NOTE | 2018-10-11 12:51 | PN ---
Date/Time of Note Date/Time of Note DATE: 10/11/18 TIME: 12:47 Objective Vitals Vital Signs Date Temp Pulse Resp B/P (MAP) Pulse Ox O2 O2 Flow FiO2 Time Delivery Rate 10/11/18 98.0 53 18 125/75 98 Room Air 09:28 (92) 10/10/18 2.0 13:27 Intake and Output 10/10/18 10/10/18 10/11/18 1515:00 23:00 07:00 IntakeIntake Total 700 ml 440 ml 1325 ml OutputOutput Total 10 ml BalanceBalance 690 ml 440 ml 1325 ml Results Result Diagram: 10/11/18 0605 10/11/18 0605 Medications Medications Current Medications Sodium Chloride 1,000 ml @ 75 mls/hr [id number] IV Last administered on 10/10/18 23:05; Admin Dose 75 MLS/HR; Start 10/07/18 at 16:14 IV Flush (NS 3 ml) 3 ml PER PROTOCOL IV ; Start 10/07/18 at 16:30 Hydromorphone HCl (Dilaudid) 0.5 mg Q4H PRN IV SEVERE PAIN LEVEL 7-10 Last administered on 10/11/18 09:28; Admin Dose 0.5 MG; Start 10/07/18 at 16:30 Acetaminophen (Tylenol Tab) 650 mg Q4H PRN PO MILD PAIN(1-3)OR ELEVATED TEMP Last administered on 10/10/18 23:09; Admin Dose 650 MG; Start 10/08/18 at 09:30 Piperacillin Sod/ Tazobactam Sod 100 ml @ 200 mls/hr Q6 IVPB Last administered on 10/11/18 12:04; Admin Dose 200 MLS/HR; Start 10/09/18 at 12:00 Ondansetron HCl (Zofran Inj) 4 mg Q6H PRN IV NAUSEA Last administered on 10/10/18 23:17; Admin Dose 4 MG; Start 10/10/18 at 13:00 Oxycodone/ Acetaminophen (Percocet (5/ 325)) 1 tab Q4H PRN PO MODERATE PAIN LEVEL 4-6; Start 10/11/18 at 13:00; Status UNV VTE Prophylaxis Risk score (from Ns)>0 risk: 2 SCD applied (from Nsg): Yes Lines/Catheters IV Catheter Type: Fulton in Place: No Assessment/Plan Hospital Course Subjective patient still having moderate abdominal pain Objective Physical exam General: Patient is laying in bed and answers questions appropriately Mentation: Patient is alert and oriented 4, Head: Normocephalic atraumatic Eyes: EOMI, pupils reactive to light Neck: Supple, nontender, midline Respiratory: Clear to auscultation bilaterally Cardiovascular: regular rate, no obvious murmurs Gastrointestinal: mild to moderate tenderness to palpation, bowel sounds heard. Neurological: Moves all extremities spontaneously Skin: No new skin lesions Assessment and plan Cholelithiasis with choledocholithiasis -GI on board -ERCP done, stent placed, but could not get stones due to large size and irregular, triangular shape. -General surgery on board, cholecystectomy done 10/10/18 -repeat ERCP with special equipment planned tomorrow or tuesday (whenever equipment is available) Cholelithiasis -No clear cholecystitis, however patient clearly having choledocholithiasis due to multiple stones -General surgery performed cholecystectomy on 10/10/18 Abdominal pain -Secondary to above cholelithiasis and choledocholithiasis Anemia -Mild, stable, monitor -Iron deficiency, given iron supplements Disposition -repeat ERCP with special equipment soon FANTASMA FIGUEROA Oct 11, 2018 12:51
[2018-10-11] MEDS ORDERED: OXYCODONE/ACETAMINOPHEN (5/325) TAB PO PRN (13:00)
[2018-10-11] MEDS: SOD CHLORIDE 0.45% 1,000 ML IV SCH ×2 (13:34→14:06)
[2018-10-11 14:41] VITALS: BP 106/66; PULSE 59; RESP 18
--- NOTE | 2018-10-11 17:00 | NUR ---
NURSE NOTES: patient alert and oriented x 4, able to make needs known no changes in LOC or mentation. No0 SOB or distress. Assessed and reassessed for pain, medicated with pain medications as ordered, stated relief. Tolerated well regular diet, no nausea/ vomiting noted. IV patent and intact. No bleeding noted on 4 lap sites. Safety precautions observed, hourly rounding done, bed alarm and bed brakes on for safety. will continue to monitor. will endorse accordingly to next shift for continuity of care.
[2018-10-11 20:00] VITALS: BP 101/60; PULSE 61; RESP 18
[2018-10-12] VITALS (14 sets, daily range): BP systolic 96–112; BP diastolic 51–68; PULSE 52–75; RESP 16–21
[2018-10-12] MEDS: PIPER-TAZO 3.375 GM IV (PMX) 100 ML IVPB SCH ×5 (00:02→23:57)
[2018-10-12] MEDS: HYDROmorphONE 0.5 MG/0.5 ML SYG IV PRN ×2 (05:50→10:48)
[2018-10-12] MEDS ORDERED: EPHEDrine SULFATE 50 MG/5 ML SYG ONE (07:00)
--- NOTE | 2018-10-12 07:02 | NUR ---
pt alert,oriented x4, nom sob, w/ intermittent abdominal pain, pain medication given as prescribed, pt prefers dilaudid iv given as prescribed, effective. no active bleeding noted on abdominal area. for ercp to day, w/ consent. npo since midnight. will endorse to dayshift nurse
--- NOTE | 2018-10-12 07:20 | PAC ---
Date/Time of Note Date/Time of Note DATE: 10/12/18 TIME: 07:20 Post-Anesthesia Notes Post-Anesthesia Note Last documented vital signs Vital Signs Date Temp Pulse Resp B/P (MAP) Pulse Ox O2 O2 Flow FiO2 Time Delivery Rate 10/12/18 98.1 71 18 101/65 97 02:00 (77) 10/11/18 Room Air 20:00 10/10/18 2.0 13:27 Activity: WNL Respiratory function: WNL Cardiovascular function: WNL Mental status: Baseline Pain reasonably controlled: Yes Hydration appropriate: Yes Nausea/Vomiting absent: Yes SILVERIO DEUTSCH Oct 12, 2018 07:20
--- NOTE | 2018-10-12 08:41 | QN ---
Documentation Comment Postoperative day #2 Patient is resting comfortably LFTs are normal As there are no further surgical recommendations, will sign off and see again prn your request. The patient will need an office follow-up in 1 week for staple removal NGOZI URBAN MD Oct 12, 2018 08:41
--- NOTE | 2018-10-12 09:00 | PN ---
DATE: 10/30/2018 HISTORY OF PRESENT ILLNESS: The patient has choledocholithiasis. She underwent laparoscopic cholecy stectomy. She has multiple large stones in the common bile duct. At this time, ERCP was attempted a few days ago. At that time, we did have Spy Glass equipment available and also laser was not availa ble. Hence, the procedure was at that time terminated. Now total procedure needs to be rescheduled and the ERCP will be performed tomorrow with a Spy Glass and laser lithotripsy. PHYSICAL EXAMINATION: GENERAL: She appears alert and well built. VITAL SIGNS: Afebrile. ABDOMEN: Soft, nontender. LABORATORY WORKUP: WBC count 4900, hemoglobin 8.7. Chemistry is normal. CLINICAL IMPRESSION: The patient has large choledocholithiasis. PLAN: At this time, ERCP will be repeated with a Spy Glass and the laser lithotripsy. Dictated By: RADHA COLIN/DELIO Conf#: [id number] DID#: [id number] CC: PHILLY SERRANO MD;*EndCC*
[2018-10-12] MEDS: SOD CHLORIDE 0.45% 1,000 ML IV SCH ×2 (09:13→16:14)
--- NOTE | 2018-10-12 15:04 | PN ---
Date/Time of Note Date/Time of Note DATE: 10/12/18 TIME: 15:03 Objective Vitals Vital Signs Date Temp Pulse Resp B/P (MAP) Pulse Ox O2 O2 Flow FiO2 Time Delivery Rate 10/12/18 98.2 55 16 101/57 97 Room Air 14:00 (72) 10/10/18 2.0 13:27 Intake and Output 10/11/18 10/11/18 10/12/18 1515:00 23:00 07:00 IntakeIntake Total 940 ml 1063 ml 900 ml OutputOutput Total 900 ml 500 ml BalanceBalance 40 ml 563 ml 900 ml Results Result Diagram: 10/12/18 0741 10/12/18 0741 Medications Medications Current Medications Sodium Chloride 1,000 ml @ 75 mls/hr [id number] IV Last administered on 10/12/18 09:13; Admin Dose 75 MLS/HR; Start 10/07/18 at 16:14 IV Flush (NS 3 ml) 3 ml PER PROTOCOL IV ; Start 10/07/18 at 16:30 Hydromorphone HCl (Dilaudid) 0.5 mg Q4H PRN IV SEVERE PAIN LEVEL 7-10 Last administered on 10/12/18at 10:48; Admin Dose 0.5 MG; Start 10/07/18 at 16:30 Acetaminophen (Tylenol Tab) 650 mg Q4H PRN PO MILD PAIN(1-3)OR ELEVATED TEMP Last administered on 10/10/18 23:09; Admin Dose 650 MG; Start 10/08/18 at 09:30 Piperacillin Sod/ Tazobactam Sod 100 ml @ 200 mls/hr Q6 IVPB Last administered on 10/12/18 13:19; Admin Dose 200 MLS/HR; Start 10/09/18 at 12:00 Ondansetron HCl (Zofran Inj) 4 mg Q6H PRN IV NAUSEA Last administered on 10/10/18 23:17; Admin Dose 4 MG; Start 10/10/18 at 13:00 Oxycodone/ Acetaminophen (Percocet (5/ 325)) 1 tab Q4H PRN PO MODERATE PAIN LEVEL 4-6; Start 10/11/18 at 13:00 VTE Prophylaxis Risk score (from Nsg)>0 risk: 2 SCD applied (from Nsg): Yes Lines/Catheters IV Catheter Type: Fulton in Place: No Assessment/Plan Hospital Course Subjective patient doing well Objective Physical exam General: Patient is laying in bed and answers questions appropriately Mentation: Patient is alert and oriented 4, Head: Normocephalic atraumatic Eyes: EOMI, pupils reactive to light Neck: Supple, nontender, midline Respiratory: Clear to auscultation bilaterally Cardiovascular: regular rate, no obvious murmurs Gastrointestinal: mild to moderate tenderness to palpation, bowel sounds heard. Neurological: Moves all extremities spontaneously Skin: No new skin lesions Assessment and plan Cholelithiasis with choledocholithiasis -GI on board -ERCP done, stent placed, but could not get stones due to large size and irregular, triangular shape. -General surgery on board, cholecystectomy done 10/10/18 -repeat ERCP with special equipment planned today Cholelithiasis -No clear cholecystitis, however patient clearly having choledocholithiasis due to multiple stones -General surgery performed cholecystectomy on 10/10/18 Abdominal pain -Secondary to above cholelithiasis and choledocholithiasis Anemia -Mild, stable, monitor -Iron deficiency, given iron supplements Disposition -repeat ERCP with special equipment today FANTASMA FIGUEROA Oct 12, 2018 15:04
[2018-10-12] MEDS ORDERED: IOHEXOL 300MG/ML 30 ML BTL ONE (16:00)
--- NOTE | 2018-10-12 16:00 | NUR ---
Patient went to GI Lab at this time for ERCP. Patient NPO. Stable condition.
--- NOTE | 2018-10-12 16:23 | PREAC ---
Date/Time of Note Date/Time of Note DATE: 10/12/18 TIME: 16:20 Anesthesia Eval and Record Evaluation Time Pre-Procedure Interview DATE: 10/12/18 TIME: 16:20 Age 32 Sex female NPO: 8 hrs Preoperative diagnosis Choledocholithiasis Planned procedure ERCP Past Medical History Past Medical History: Includes Heme: Anemia Surgery & Anesthesia Issues No known issue Meds Anticoagulation: No Beta Asif within 24 hr: No Reason Beta Asif not given: Pt. not on B-Asif Current Medications Sodium Chloride 1,000 ml @ 75 mls/hr [id number] IV Last administered on 10/12/18 09:13; Admin Dose 75 MLS/HR; Start 10/07/18 at 16:14 IV Flush (NS 3 ml) 3 ml PER PROTOCOL IV ; Start 10/07/18 at 16:30 Hydromorphone HCl (Dilaudid) 0.5 mg Q4H PRN IV SEVERE PAIN LEVEL 7-10 Last administered on 10/12/18 10:48; Admin Dose 0.5 MG; Start 10/07/18 at 16:30 Acetaminophen (Tylenol Tab) 650 mg Q4H PRN PO MILD PAIN(1-3)OR ELEVATED TEMP Last administered on 10/10/18at 23:09; Admin Dose 650 MG; Start 10/08/18 at 09:30 Piperacillin Sod/ Tazobactam Sod 100 ml @ 200 mls/hr Q6 IVPB Last administered on 10/12/18 13:19; Admin Dose 200 MLS/HR; Start 10/09/18 at 12:00 Ondansetron HCl (Zofran Inj) 4 mg Q6H PRN IV NAUSEA Last administered on 10/10/18at 23:17; Admin Dose 4 MG; Start 10/10/18 at 13:00 Oxycodone/ Acetaminophen (Percocet (5/ 325)) 1 tab Q4H PRN PO MODERATE PAIN LEVEL 4-6; Start 10/11/18 at 13:00 Indomethacin (Indocin Supp) 100 mg ONCE ONCE AR ; Start 10/12/18 at 16:30; Stop 10/12/18 at 16:31 Meds reviewed: Yes Allergies Coded Allergies: No Known Allergies (Verified Allergy, Unknown, 10/07/18) Allergies Reviewed: Yes Labs/Studies Labs Reviewed: Reviewed by anesthesiologist Result Diagram: 10/12/18 0741 10/12/18 0741 Laboratory Tests 10/12/18 07:41 test: Negative Studies: ECG (NSR), CXR (n/a) Pre-procedure Exam Last vitals Vital Signs Date Temp Pulse Resp B/P (MAP) Pulse Ox O2 O2 Flow FiO2 Time Delivery Rate 10/12/18 98.2 55 16 101/57 97 Room Air 14:00 (72) 10/10/18 2.0 13:27 Airway: Adequate mouth opening, Adequate thyromental dist Mallampati: Mallampati II Teeth: Normal Lung: Normal Heart: Normal ASA Physical Status ASA physical status: 2 Emergency: None Planned Anesthetic General/MAC: ETT Planned Pain Management Parenteral pain med Pre-operative Attestations Prior to commencing anesthesia and surgery, the patient was re-evaluated, there was verification of: *The patient's identity *The results of appropriate recent lab work and preoperative vital signs *The above evaluation not changing prior to induction *Anesthetic plan, risk benefits, alternative and complications discussed with patient/family; questions answered; patient/family understands, accepts and wishes to proceed. KAITLIN BAEZA MD Oct 12, 2018 16:23
[2018-10-12] MEDS ORDERED: CEFAZOLIN 1 GM INJ ONE (16:29)
[2018-10-12] MEDS ORDERED: MIDAZOLAM 1 MG/ML 2 ML INJ ONE (16:29)
[2018-10-12] MEDS ORDERED: PROPOFOL 20 ML ONE (16:29)
[2018-10-12] MEDS ORDERED: ROCURONIUM 50 MG INJ ONE (16:29)
[2018-10-12] MEDS ORDERED: FENTAnyl 50 MCG/ML VIAL ONE (16:29)
[2018-10-12] MEDS ORDERED: FENTAnyl 50 MCG/ML VIAL IV PRN ×2 (16:30)
[2018-10-12] MEDS ORDERED: ONDANSETRON 4 MG INJ IV PRN (16:30)
[2018-10-12] MEDS ORDERED: hydrALAzine 20 MG INJ IV PRN (16:30)
[2018-10-12] MEDS ORDERED: DIPHENHYDRAMINE 50 MG INJ IV PRN (16:30)
[2018-10-12] MEDS ORDERED: EPHEDrine SULFATE 50 MG/5 ML SYG IV PRN (16:30)
[2018-10-12] MEDS ORDERED: LABETALOL HCL 20MG INJ IV PRN (16:30)
[2018-10-12] MEDS ORDERED: METOCLOPRAMIDE 10 MG INJ IV PRN (16:30)
[2018-10-12] MEDS ORDERED: MEPERIDINE 25 MG INJ IV PRN (16:30)
[2018-10-12] MEDS ORDERED: INDOMETHACIN 50 MG SUPP PR ONE (16:30)
[2018-10-12] MEDS ORDERED: HYDROmorphONE 1 MG/5 ML IV SYRINGE IV PRN ×2 (16:30)
[2018-10-12] MEDS ORDERED: METOCLOPRAMIDE 10 MG INJ ONE (17:18)
[2018-10-12] MEDS ORDERED: ONDANSETRON 4 MG INJ ONE (17:18)
[2018-10-12] MEDS ORDERED: DEXAMETHASONE 4 MG/ML 5 ML INJ ONE (17:18)
[2018-10-12] MEDS ORDERED: metroNIDAZOLE 500 MG/NS (PMX) 100 ML IVPB ONE (17:20)
[2018-10-12] MEDS ORDERED: NEOSTIGMINE 3 MG/3 ML SYRINGE ONE (17:29)
[2018-10-12] MEDS ORDERED: GLYCOPYRROLATE 1 MG INJ ONE (17:29)
--- NOTE | 2018-10-12 17:41 | NUR ---
RECEIVED ASLEEP WITH OXYGEN MASK IN PLACE, BREATHING WITH EASE, ABDOMEN SOFT WITH BAND AIDS X 4 OVER PREVIOUS SURGERY INCISIONS.
--- NOTE | 2018-10-12 17:43 | PAC ---
Date/Time of Note Date/Time of Note DATE: 10/12/18 TIME: 17:43 Post-Anesthesia Notes Post-Anesthesia Note Last documented vital signs Vital Signs Date Temp Pulse Resp B/P (MAP) Pulse Ox O2 O2 Flow FiO2 Time Delivery Rate 10/12/18 98.2 55 16 101/57 97 Room Air 17:40 (72) 10/10/18 2.0 13:27 Activity: WNL Respiratory function: WNL Cardiovascular function: WNL Mental status: Baseline Pain reasonably controlled: Yes Hydration appropriate: Yes Nausea/Vomiting absent: Yes KAITLIN BAEZA MD Oct 12, 2018 17:43
--- NOTE | 2018-10-12 17:53 | OPR ---
Date/Time of Note Date/Time of Note DATE: 10/12/18 TIME: 17:48 Operative Report Preoperative Diagnosis cbd stones Postoperative Diagnosis cbd stones cystic duct leak Operation/Procedure Performed ercp sphincterotomy balloon sweep cbd stent placement Surgeon see signature line Fuel Retrofitting Technician none Anesthesia Type: general Anesthesiologist: KAITLIN BAEZA MD Estimated Blood Loss: none Transfusion none Specimen none Grafts/Implants none Tubes/Drains existing cbd stent removed prior to sphincterotomy Complications none Pt Condition Post Procedure: stable Disposition: PACU Indications cbd stones Procedure Description ercp done sphincterotomy done balloon sweeping done. cystic duct leak noted cbd 07/16 stent placed RADHA NELSON MD Oct 12, 2018 17:53
--- NOTE | 2018-10-12 18:32 | NUR ---
AWAKE AND ALERT DENIES PAIN AT THIS TIME. ABDOMEN SOFT, DR NELSON IN AND CHECKED ABDOMEN, NO TENDERNESS. REPORT TO RECEIVING RN. PARTIAL UPPER AND LOWER DENTURES PLACED INSIDE MOUTH BY PATIENT, SENT EMPTY DENTURE CUP WITH HER, RISA CHILDS MADE AWARE. TRANSFERRED TO FLOOR IN STABLE CONDITION.
--- NOTE | 2018-10-12 18:55 | NUR ---
Patient came back from PACU. Patient alert and oriented, sleepy but arousable. Patient with vital signs stable. Denies pain. at bedside. Report given to Kamryn JOHNSON.
[2018-10-13] MEDS: HYDROmorphONE 0.5 MG/0.5 ML SYG IV PRN ×2 (01:16→08:46)
[2018-10-13 03:13] VITALS: BP 105/59; PULSE 60; RESP 18
--- NOTE | 2018-10-13 04:18 | GILP ---
DATE OF PROCEDURE: PROCEDURES: ERCP and removal of existing CBD stent. After sphincterotomy and balloon sweeping, anot her 10 x 7 CBD stent was placed because of the cystic duct leak. DESCRIPTION OF PROCEDURE: After the informed written consent was obtained, the patient was intubated by anesthesiologist, Dr. Carter. While the patient was intubated on the prone position, Olympus vi jorje side-viewing duodenoscope was inserted into the oropharynx, then into the esophagus, subsequently into the stomach and duodenum. The existing CBD stent was removed and, by using the Dreamtome, callum ulation was performed. Multiple filling defects were noted. At this time, there is also evidence of dilated CBD and also stricture of the distal bile duct, and because of this, sphincterotomy was exte nded to about 7 cm proximally and following the sphincterotomy, a stone extraction balloon was insert ed. An attempt was made to remove the stone, but the stone could not be removed because of the stric ture in the distal bile duct. At this time, when the contrast was injected, there is evidence of a c ystic duct leak noted and because of this, the plan to remove the CBD stone was abandoned and a 10 x 7 CBD stent was placed over the wire into the common hepatic duct across the ampulla into the duodenu m. Photographs were obtained and the procedure was terminated. PLAN: Recommend after a month, go back and try to remove the common bile duct stone. Dictated By: RADHA COLIN/NTS Conf#: [id number] DID#: [id number] CC: FANTASMA FIGUEROA MD;*EndCC*
[2018-10-13] MEDS: PIPER-TAZO 3.375 GM IV (PMX) 100 ML IVPB SCH (05:47)
[2018-10-13] MEDS: SOD CHLORIDE 0.45% 1,000 ML IV SCH (06:34)
[2018-10-13 08:02] VITALS: BP 103/63; PULSE 68; RESP 18
[2018-10-13] MEDS: CIPROFLOXACIN 500 MG TAB PO SCH ×2 (10:34→17:19)
[2018-10-13] MEDS: HYDROCODONE/APAP (10/325) TAB PO PRN ×3 (13:50→22:44)
[2018-10-13] MEDS: metroNIDAZOLE 500 MG TAB PO SCH ×2 (13:50→21:12)
[2018-10-13 14:05] VITALS: BP 102/62; PULSE 65; RESP 18
--- NOTE | 2018-10-13 15:33 | PN ---
Date/Time of Note Date/Time of Note DATE: 10/13/18 TIME: 15:31 Objective Vitals Vital Signs Date Temp Pulse Resp B/P (MAP) Pulse Ox O2 O2 Flow FiO2 Time Delivery Rate 10/13/18 98.1 65 18 102/62 97 Room Air 14:05 (75) 10/12/18 8.0 17:41 Intake and Output 10/12/18 10/12/18 10/13/18 1515:00 23:00 07:00 IntakeIntake Total 137 ml 550 ml 750 ml BalanceBalance 137 ml 550 ml 750 ml Results Result Diagram: 10/13/18 0503 10/13/18 0504 Medications Medications Current Medications IV Flush (NS 3 ml) 3 ml PER PROTOCOL IV ; Start 10/07/18 at 16:30 Acetaminophen (Tylenol Tab) 650 mg Q4H PRN PO MILD PAIN(1-3)OR ELEVATED TEMP Last administered on 10/10/18at 23:09; Admin Dose 650 MG; Start 10/08/18 at 09:30 Ondansetron HCl (Zofran Inj) 4 mg Q6H PRN IV NAUSEA Last administered on 10/10/18at 23:17; Admin Dose 4 MG; Start 10/10/18 at 13:00 Ciprofloxacin (Cipro) 500 mg BID@06,18 PO Last administered on 10/13/18 10:34; Admin Dose 500 MG; Start 10/13/18 at 10:00 Metronidazole (Flagyl) 500 mg Q8 PO Last administered on 10/13/18at 13:50; Admin Dose 500 MG; Start 10/13/18 at 14:00 Acetaminophen/ Hydrocodone Bitart ([place] (10/325)) 1 tab Q4H PRN PO MODERATE PAIN LEVEL 4-6 Last administered on 10/13/18 13:50; Admin Dose 1 TAB; Start 10/13/18 at 11:00 VTE Prophylaxis Risk score (from Nsg)>0 risk: 3 SCD applied (from Nsg): Yes Lines/Catheters IV Catheter Type: F[place] in Place: No Assessment/Plan Hospital Course Subjective patient doing well Objective Physical exam General: Patient is laying in bed and answers questions appropriately Mentation: Patient is alert and oriented 4, Head: Normocephalic atraumatic Eyes: EOMI, pupils reactive to light Neck: Supple, nontender, midline Respiratory: Clear to auscultation bilaterally Cardiovascular: regular rate, no obvious murmurs Gastrointestinal: mild to moderate tenderness to palpation, bowel sounds heard. Neurological: Moves all extremities spontaneously Skin: No new skin lesions Assessment and plan Cholelithiasis with choledocholithiasis -GI on board -ERCP done, stent placed, but could not get stones due to large size and irregular, triangular shape. -General surgery on board, cholecystectomy done 10/10/18 -repeat ERCP with special equipment attempted, but due to bile leak, could not successfully remove stones (unable to continue to use contrast as it would enter the peritoneum) Cholelithiasis -No clear cholecystitis, however patient clearly having choledocholithiasis due to multiple stones -General surgery performed cholecystectomy on 10/10/18 Abdominal pain -Secondary to above cholelithiasis and choledocholithiasis bile leak -seen during ERCP -unknown cause -will get CT to assess Anemia -Mild, stable, monitor -Iron deficiency, given iron supplements Disposition -monitor overnight for pain, pending CT ab/pelvis FANTASMA FIGUEROA Oct 13, 2018 15:33
[2018-10-13] MEDS: ACETAMINOPHEN 325 MG TAB PO PRN (17:19)
--- NOTE | 2018-10-13 18:32 | NUR ---
Patient alert oriented x4. patient complains of abdominal pain, medication given for pain management. all medication given on timely manner. patient is cooperative. no shortness of breath noted.will endorse to operation shift supervisor nurse. Fall precaution in place, call light within reach.
[2018-10-13 20:00] VITALS: BP 107/64; PULSE 70; RESP 18
[2018-10-14 01:24] VITALS: BP 98/54; PULSE 59; RESP 18
[2018-10-14] MEDS: HYDROCODONE/APAP (10/325) TAB PO PRN ×2 (03:43→10:09)
--- NOTE | 2018-10-14 04:00 | NUR ---
191 Pt received aaox4, oriented to oncoming shift nurse and [facility] safety protocols including utilizing the call hinton, hourly rounding, and an active bed alarm. Pt verbalized understanding, denies further needs at this time. 2244 Pt complains of 8/10 abdominal pain. Medicated with [place] 5 minutes prior to next administration time, due to intense pain. Dr. Villanueva aware. 0000 Pt sleeping at this time, no s/s of distress. Respirations regular and even, nursing will continue to monitor. 0343 Pt medicated w/ [place] 1 tab for 6/10 abd pain at flower lap site. Medial lap flower incision directly under belly button draining clean drainage soaking bandage and changed. Addendum: 10/14/18 at 0821 by FATOU RAMIREZ RN 0700 No significant changes throughout the night, pt stable. Nursing will endorse to morning shift to ensure continuity of care.
[2018-10-14] MEDS: CIPROFLOXACIN 500 MG TAB PO SCH ×2 (07:07→18:02)
[2018-10-14] MEDS: ACETAMINOPHEN 325 MG TAB PO PRN (07:08)
[2018-10-14] MEDS: metroNIDAZOLE 500 MG TAB PO SCH ×3 (07:12→22:01)
[2018-10-14 08:09] VITALS: BP 98/54; PULSE 66; RESP 17
--- NOTE | 2018-10-14 10:25 | NUR ---
Patient alert and oriented x4, iv intact and heplock, stable with no signs of distress or shortness of breath. pt complains of abdominal pain, [place] 10 given, CT of abdomen and pelvis done. Bed alarms on, bed in lowest position and call light in reach.
--- NOTE | 2018-10-14 12:24 | PN ---
Date/Time of Note Date/Time of Note DATE: 10/14/18 TIME: 12:20 Objective Vitals Vital Signs Date Temp Pulse Resp B/P (MAP) Pulse Ox O2 O2 Flow FiO2 Time Delivery Rate 10/14/18 98.0 66 17 98/54 (69) 100 Room Air 08:09 10/12/18 8.0 17:41 Intake and Output 10/13/18 10/13/18 10/14/18 1515:00 23:00 07:00 IntakeIntake Total 500 ml 240 ml BalanceBalance 500 ml 240 ml Results Result Diagram: 10/14/18 0439 10/14/18 0439 Medications Medications Current Medications IV Flush (NS 3 ml) 3 ml PER PROTOCOL IV ; Start 10/07/18 at 16:30 Acetaminophen (Tylenol Tab) 650 mg Q4H PRN PO MILD PAIN(1-3)OR ELEVATED TEMP Last administered on 10/14/18at 07:08; Admin Dose 650 MG; Start 10/08/18 at 09:30 Ondansetron HCl (Zofran Inj) 4 mg Q6H PRN IV NAUSEA Last administered on 10/10/18at 23:17; Admin Dose 4 MG; Start 10/10/18 at 13:00 Ciprofloxacin (Cipro) 500 mg BID@06,18 PO Last administered on 10/14/18at 07:07; Admin Dose 500 MG; Start 10/13/18 at 10:00 Metronidazole (Flagyl) 500 mg Q8 PO Last administered on 10/14/18at 07:12; Admin Dose 500 MG; Start 10/13/18 at 14:00 Oxycodone/ Acetaminophen (Endocet (10/ 325)) 1 tab Q4H PRN PO MODERATE PAIN LEVEL 4-6; Start 10/14/18 at 11:30 VTE Prophylaxis Risk score (from Nsg)>0 risk: 3 SCD applied (from Nsg): Yes Lines/Catheters IV Catheter Type: F[place] in Place: No Assessment/Plan Hospital Course Subjective patient still having some RUQ and LUQ pain, some drainage at surgical site. but clear. Objective Physical exam General: Patient is laying in bed and answers questions appropriately Mentation: Patient is alert and oriented 4, Head: Normocephalic atraumatic Eyes: EOMI, pupils reactive to light Neck: Supple, nontender, midline Respiratory: Clear to auscultation bilaterally Cardiovascular: regular rate, no obvious murmurs Gastrointestinal: mild to moderate tenderness to palpation, bowel sounds heard. Neurological: Moves all extremities spontaneously Skin: No new skin lesions Assessment and plan Cholelithiasis with choledocholithiasis -GI on board -ERCP done, stent placed, but could not get stones due to large size and irregular, triangular shape. -General surgery on board, cholecystectomy done 10/10/18 -repeat ERCP with special equipment attempted, but due to bile leak, could not successfully remove stones (unable to continue to use contrast as it would enter the peritoneum) Cholelithiasis -No clear cholecystitis, however patient clearly having choledocholithiasis due to multiple stones -General surgery performed cholecystectomy on 10/10/18 Abdominal pain -Secondary to above cholelithiasis and choledocholithiasis bile leak -seen during ERCP -unknown cause -will get CT to assess Anemia -Mild, stable, monitor -Iron deficiency, given iron supplements Disposition -monitor overnight for pain, pending CT ab/pelvis results FANTASMA FIGUEROA Oct 14, 2018 12:24
[2018-10-14 14:00] VITALS: BP 114/66; PULSE 63; RESP 17
[2018-10-14] MEDS: OXYCODONE/ACETAMINOPHEN (10/325) TAB PO PRN ×2 (18:04→22:01)
[2018-10-14 20:00] VITALS: BP 113/63; PULSE 61; RESP 18
[2018-10-15 02:16] VITALS: BP 99/59; PULSE 55; RESP 18
[2018-10-15] MEDS: OXYCODONE/ACETAMINOPHEN (10/325) TAB PO PRN (06:07)
[2018-10-15] MEDS: metroNIDAZOLE 500 MG TAB PO SCH (06:08)
[2018-10-15] MEDS: CIPROFLOXACIN 500 MG TAB PO SCH (06:08)
--- NOTE | 2018-10-15 06:33 | NUR ---
Pt is alert and oriented x4. Able to ambulate to the restroom. Pt complained of pain. PRN pain medication given as ordered. Skin assessment done. 4 lap incisions noted with martin intact and no drainage noted. Vital signs stable. Will keep monitoring pt.
[2018-10-15 08:39] VITALS: BP 91/51; PULSE 62; RESP 18
[2018-10-15] MEDS ORDERED: CIPR500T4 PO (10:34)
[2018-10-15] MEDS ORDERED: METR500T PO (10:34)
[2018-10-15] MEDS ORDERED: HYDR-3980 PO (10:34)
--- NOTE | 2018-10-15 10:36 | PDOCDIS ---
Discharge Instructions CONDITION [id number] Patient Condition: [id number] Stable HOME CARE INSTRUCTIONS: [id number] Special Diet: [id number] Full Liquid FOLLOW UP/APPOINTMENTS Follow-up Plan 1. You will need to follow up with Dr. Hall (business card given and phone number given) within 1 week for outpatient removal of gallstones in bile duct. 2. Please follow up with Dr. Walton, surgeon, (phone number given) within 1 week for eval of recent gallbladder surgery 3. Continue abx per GI orders FANTASMA FIGUEROA Oct 15, 2018 10:36
--- NOTE | 2018-10-15 10:44 | DS ---
Date/Time of Note Date/Time of Note DATE: 10/15/18 TIME: 10:43 Discharge Summary Admission/Discharge Info Admit Date/Time Oct 07, 2018 at 15:40 Discharge Date/Time Patient Condition: Stable Hospital Course Patient is a female who presented to [facility] for abdominal pain. Patient was diagnosed with cholelithiasis and choledocholithiasis. Patient was seen by GI and general surgery. GI initially attempted to perform ERCP however due to size and shape of stones was unable to proceed. General surgery subsequently removed the gallbladder without any complications. GI none decided to perform another ERCP with specialized equipment to break up the stone, however due to bile leak diagnosed during the ERCP, contrast cannot be continued to be given. CT and HIDA scan was done to ensure no significant bile leakage in the abdomen. At this time GI recommended patient to be followed up outpatient as patient's biliary labs are within normal limits and do not show complete obstruction as patient will need time for the bile leak to heal before repeat ERCP to finally remove the stones. Stent was also placed during the procedure. Patient will be discharged as she is stable with improving abdominal pain with pain medication as well as a short course of antibiotics as a prophylactic measure and it was explained to the patient with a senior national account manager that she will need to follow-up with GI within 1 week in order to have further follow-up and elective ERCP to remove the remaining s tones. It was also recommended patient get repeat labs as soon as possible to ensure that the gallstones are not creating any biliary issues. Patient will also follow-up with general surgeon who performed a laparoscopic cholecystectomy. Patient doing well be discharged. No drainage at any surgical site. Discharge diagnosis Cholelithiasis Choledocholithiasis Abdominal pain Bile leak Anemia Home Meds Active Scripts Hydrocodone/Acetaminophen ([place] 10-325 Tablet) 1 Each Tablet, 1 EACH PO Q8 PRN for PAIN, #21 TAB Prov:FANTASMA FIGUEROA 10/15/18 Metronidazole* (Flagyl*) 500 Mg Tablet, 500 MG PO Q8 for 7 Days, #21 TAB Prov:FANTASMA FIGUEROA 10/15/18 Ciprofloxacin Hcl* (Ciprofloxacin Hcl*) 500 Mg Tablet, 500 MG PO BID@06,18 for 7 Days, #14 TAB Prov:FANTASMA FIGUEROA 10/15/18 Follow-up Plan 1. You will need to follow up with Dr. Hall (business card given and phone number given) within 1 week for outpatient removal of gallstones in bile duct. 2. Please follow up with Dr. Walton, surgeon, (phone number given) within 1 week for eval of recent gallbladder surgery 3. Continue abx per GI orders 4. Please obtain repeat bloodwork to assess for no biliary issues, you will need CBC and a comprehensive metabolic panel within 1 week. Primary Care Provider Not On Staff Doctor Time spent on discharge: > 30 minutes Pending Labs Laboratory Tests Test 10/15/18 04:49 White Blood Count 4.8 10^3/ul (4.8-10.8) Red Blood Count 3.67 10^6/ul (4.20-5.40) Hemoglobin 10.8 g/dl (12.0-16.0) Hematocrit 32.2 % (37.0-47.0) Mean Corpuscular Volume 87.7 fl (82.0-101.0) Mean Corpuscular Hemoglobin 29.4 pg (29.0-33.0) Mean Corpuscular Hemoglobin Concent 33.5 g/dl (32.0-37.0) Red Cell Distribution Width 16.2 % (11.5-14.5) Platelet Count 275 10^3/UL (140-415) Mean Platelet Volume 11.2 fl (7.4-10.4) Immature Granulocytes % 0.200 % (0.001-0.429) Neutrophils % 48.3 % (39.0-77.0) Lymphocytes % 39.2 % (15.0-51.0) Monocytes % 7.1 % (0.0-11.0) Eosinophils % 4.8 % (0.0-7.0) Basophils % 0.4 % (0.0-2.0) Nucleated Red Blood Cells % 0.0 /100WBC (0.0-0.0) Immature Granulocytes # 0.010 10^3/ul (0.0-0.031) Neutrophils # 2.3 10^3/ul (1.6-7.5) Lymphocytes # 1.9 10^3/ul (0.8-2.9) Monocytes # 0.3 10^3/ul (0.3-0.9) Eosinophils # 0.2 10^3/ul (0.0-0.5) Basophils # 0.0 10^3/ul (0.0-0.1) Nucleated Red Blood Cells # 0.0 10^3/ul (0.0-0.0) Sodium Level 139 mmol/L (135-144) Potassium Level 3.9 mmol/L (3.5-5.1) Chloride Level 102 mmol/L (97-110) Carbon Dioxide Level 29 mmol/L (21-31) Anion Gap 8 (5-13) Blood Urea Nitrogen 6 mg/dl (7-20) Creatinine 0.58 mg/dl (0.44-1.00) Est Glomerular Filtrat Rate mL/min > 60 mL/min (>60) Glucose Level 85 mg/dl (70-220) Calcium Level 9.5 mg/dl (8.4-10.2) Phosphorus Level 4.7 mg/dl (2.5-4.9) Magnesium Level 2.2 mg/dl (1.7-2.5) FANTASMA FIGUEROA Oct 15, 2018 10:44
--- NOTE | 2018-10-15 10:59 | NUR ---
Patient being discharged home in stable condition, no signs of pain, distress or shortness of breath. IV removed. Discussed discharge instructions, health care summary and prescription with patient. Patient stated she understood. Patient aware to follow up with her primary doctor, Dr. Walton and Dr. Hall in 1 week. Contact information for Dr. Walton and Dr. Hall given. Patient stated she understood. Patient waiting for ride home.
--- NOTE | 2018-10-16 09:10 | CONS ---
DATE OF ADMISSION: 10/07/2018 DATE OF CONSULTATION: At this time, patient is having a HIDA scan, but she has no significant abdominal pain. PHYSICAL EXAMINATION: VITAL SIGNS: Temperature 98.2. Blood pressure 114/66. ABDOMEN: Unremarkable. LABORATORY WORKUP: WBC count is 5400. Chemistry shows bilirubin 0.1. CLINICAL IMPRESSION: Status post endoscopic retrograde cholangiopancreatography, common bile duct st ent placement. There was a biliary leak noted and CAT scan of the abdomen showed evidence of very mi nimal fluid in the gallbladder fossa. PLAN: Just to rule out ongoing biliary leak, HIDA scan is ordered. At this time, will wait for the results of the HIDA scan. If the HIDA scan is normal, the patient can be discharged. Dictated By: RADHA NELSON MD NC/NTS Conf#: [id number] DID#: [id number] CC: PHILLY SERRANO MD;*EndCC*
== END 2018-10-15 12:21 | disposition home or self-care (01) | DRG 418 ==
LOC: PP2 15:40
PROVIDERS: ADMIT Internal Medicine; ATTEND Internal Medicine
PROC: 0F798DZ Dilation of Common Bile Duct with Intraluminal Device, Via Natural or Artificial Opening Endoscopic (ICD-10-PCS; 2018-10-09)
PROC: 0FT44ZZ Resection of Gallbladder, Percutaneous Endoscopic Approach (ICD-10-PCS; principal; 2018-10-10 12:00)
PROC: 0FPB8DZ Removal of Intraluminal Device from Hepatobiliary Duct, Via Natural or Artificial Opening Endoscopic (ICD-10-PCS; 2018-10-12)
PROC: 0F798DZ Dilation of Common Bile Duct with Intraluminal Device, Via Natural or Artificial Opening Endoscopic (ICD-10-PCS; 2018-10-12)
DX: K80.62 Calculus of gallbladder and bile duct with acute cholecystitis without obstruction (principal); K91.89 Other postprocedural complications and disorders of digestive system; D50.9 Iron deficiency anemia, unspecified
CPT/HCPCS: 74176; 74181; 74330; 78226; 80048; 80053; 82728; 83036; 83540; 83735; 84100; 84703; 85025; 85610; 88304; A9537; C2617; J0690; J0696; J1100; J1170; J2001; J2175; J2250; J2405; J2543; J2710; J2765; J2795; J2916; J3010; Q9967

== ENCOUNTER 2019-01-24 08:57 | Day surgery (SDC) | payer OTHER ==
[2019-01-22 17:20] VITALS: Ht 152.4 cm; Wt 57.0 kg
[~2019-01-24] VITALS: Ht 152.4 cm; Wt 57.0 kg
[2019-01-24] VITALS (12 sets, daily range): BP systolic 97–147; BP diastolic 56–80; PULSE 60–76; RESP 16–23
[~2019-01-24 08:57] MED LIST: CEFAZOLIN 1 GM INJ ONE; CIPR500T4 PO; EPHEDrine 25 MG/5 ML SYG ONE; FENTAnyl 50 MCG/ML VIAL ONE; HYDR-3980 PO; METR500T PO; MIDAZOLAM 1 MG/ML 2 ML INJ ONE; PROPOFOL 200 MG INJ ONE; ROCURONIUM 50 MG INJ ONE; SEVOFLURANE 15 MIN ONE
--- NOTE | 2019-01-24 10:27 | PREAC ---
Date/Time of Note Date/Time of Note DATE: 01/24/19 TIME: 10:26 Anesthesia Eval and Record Evaluation Time Pre-Procedure Interview DATE: 01/24/19 TIME: 10:26 Age 33 Sex female NPO: 8 hrs Preoperative diagnosis Abdominal Pain Planned procedure ERCP Past Medical History Past Medical History: None Surgery & Anesthesia Issues No known issue Meds Anticoagulation: No Beta Asif within 24 hr: No Reason Beta Asif not given: Pt. not on B-Asif Discontinued Scripts Hydrocodone/Acetaminophen ([place] 10-325 Tablet) 1 Each Tablet, 1 EACH PO Q8 PRN for PAIN, #21 TAB Prov:FANTASMA FIGUEROA 10/15/18 Metronidazole* (Flagyl*) 500 Mg Tablet, 500 MG PO Q8 for 7 Days, #21 TAB Prov:FANTASMA FIGUEROA 10/15/18 Ciprofloxacin Hcl* (Ciprofloxacin Hcl*) 500 Mg Tablet, 500 MG PO BID@06,18 for 7 Days, #14 TAB Prov:FANTASMA FIGUEROA 10/15/18 Meds reviewed: Yes Allergies Coded Allergies: No Known Allergies (Verified Allergy, Unknown, 01/24/19) Allergies Reviewed: Yes Labs/Studies Labs Reviewed: Reviewed by anesthesiologist test: Negative Studies: ECG (n/a), CXR (n/a) Pre-procedure Exam Last vitals Vital Signs Date Temp Pulse Resp B/P (MAP) Pulse Ox O2 O2 Flow FiO2 Time Delivery Rate 01/24/19 98.6 62 16 111/68 100 Room Air 09:37 (82) Airway: Adequate mouth opening, Adequate thyromental dist Mallampati: Mallampati II Teeth: Normal Lung: Normal Heart: Normal ASA Physical Status ASA physical status: 2 Emergency: None Planned Anesthetic General/MAC: ETT Planned Pain Management Parenteral pain med Pre-operative Attestations Prior to commencing anesthesia and surgery, the patient was re-evaluated, there was verification of: *The patient's identity *The results of appropriate recent lab work and preoperative vital signs *The above evaluation not changing prior to induction *Anesthetic plan, risk benefits, alternative and complications discussed with patient/family; questions answered; patient/family understands, accepts and wishes to proceed. KAITLIN BAEZA MD Jan 24, 2019 10:27
[2019-01-24] MEDS ORDERED: FENTAnyl 50 MCG/ML VIAL IV PRN ×3 (10:30)
[2019-01-24] MEDS ORDERED: LABETALOL HCL 20MG INJ IV PRN (10:30)
[2019-01-24] MEDS ORDERED: METOCLOPRAMIDE 10 MG INJ IV PRN (10:30)
[2019-01-24] MEDS ORDERED: EPHEDrine SULFATE 50 MG/5 ML SYG IV PRN (10:30)
[2019-01-24] MEDS ORDERED: ONDANSETRON 4 MG INJ IV PRN (10:30)
[2019-01-24] MEDS ORDERED: MEPERIDINE 25 MG INJ IV PRN (10:30)
[2019-01-24] MEDS ORDERED: HYDROmorphONE 1 MG/5 ML IV SYRINGE IV PRN ×3 (10:30)
[2019-01-24] MEDS ORDERED: DIPHENHYDRAMINE 50 MG INJ IV PRN (10:30)
[2019-01-24] MEDS ORDERED: INDOMETHACIN 50 MG SUPP PR ONE (10:52)
[2019-01-24] MEDS ORDERED: IOHEXOL 300MG/ML 30 ML BTL ONE (10:55)
[2019-01-24] MEDS ORDERED: ONDANSETRON 4 MG INJ ONE ×2 (11:57→13:32)
[2019-01-24] MEDS ORDERED: DEXAMETHASONE 4 MG/ML 5 ML INJ ONE (11:57)
[2019-01-24] MEDS ORDERED: METOCLOPRAMIDE 10 MG INJ ONE (11:57)
[2019-01-24] MEDS ORDERED: KETOROLAC 30 MG INJ ONE (11:57)
[2019-01-24] MEDS ORDERED: SUGAMMADEX SODIUM 200 MG/2 ML VIAL IV ONE (13:00)
--- NOTE | 2019-01-24 13:08 | PAC ---
Date/Time of Note Date/Time of Note DATE: 01/24/19 TIME: 13:08 Post-Anesthesia Notes Post-Anesthesia Note Last documented vital signs Vital Signs Date Temp Pulse Resp B/P (MAP) Pulse Ox O2 O2 Flow FiO2 Time Delivery Rate 01/24/19 98.6 62 16 111/68 100 Room Air 09:37 (82) Activity: WNL Respiratory function: WNL Cardiovascular function: WNL Mental status: Baseline Pain reasonably controlled: Yes Hydration appropriate: Yes Nausea/Vomiting absent: Yes KAITLIN BAEZA MD Jan 24, 2019 13:08
--- NOTE | 2019-01-24 13:11 | OPR ---
Date/Time of Note Date/Time of Note DATE: 01/24/19 TIME: 13:04 Operative Report Preoperative Diagnosis cbd stones Postoperative Diagnosis cbd stones Operation/Procedure Performed ercp ers stone removel after lithotripsy stent placed Surgeon see signature line Toe Puncher none Anesthesia Type: general Anesthesiologist: KAITLIN BAEZA MD Estimated Blood Loss: none Transfusion none Specimen none Grafts/Implants none Tubes/Drains none Complications none Pt Condition Post Procedure: stable Indications cbd stones Procedure Description ercp done stent removed large cbd stones note sphincterotomy extended lithotripsy performed multiple stones removed cbd stent placed RADHA NELSON MD Jan 24, 2019 13:11
[2019-01-24] MEDS ORDERED: HYDROmorphONE 1 MG/5 ML IV SYRINGE IV ONE (13:33)
--- NOTE | 2019-01-24 20:57 | GILP ---
DATE OF PROCEDURE: 01/24/2019 PROCEDURE: ERCP, removal of a CBD stent, removal of CBD stones after sphincterotomy, lithotripsy. A lso, CBD stent was placed. PREOPERATIVE DIAGNOSIS: The patient has a history of CBD stones, CBD stent in place. POSTOPERATIVE DIAGNOSIS: The patient has a history of CBD stones, CBD stent in place. Procedure at this time performed to remove the CBD stent and also remove the CBD stones. Lithotripsy was performed. DESCRIPTION OF PROCEDURE: After the informed written consent was obtained, the patient was intubated by anesthesiologist, Dr. Carter. While the patient was in prone position, Olympus video side-viewi ng duodenoscope was inserted into the oropharynx then into the esophagus, subsequently into the stoma ch and then into the duodenum. The stent was noted exiting through the papillary opening. By using the polypectomy snare, the stent was grasped and then the stent was removed through the scope. At this time, cannulation was performed with the stone extraction balloon and multiple large stones w ere noted in the common bile duct, and the balloon was removed. Multiple efforts to remove the stone s yielded only removal of small stones, but large stones could not be removed. At this time, by using the cutting wire of the Dreamtome, sphincterotomy was performed. About 5 mm c ut of the ampulla was made. At this time, I just felt that the balloon sweeping will not help to rem ove the stones, and because of this, 2.5 size Trapezoid lithotripter was inserted into the common olga e duct and multiple stones were grabbed with the lithotripsy, and the stones were crushed and all the pieces were removed. At the end of the procedure, still there seems to be 1 or 2 stones left behind and these seem to be rather large stones, and they may have to be removed after a laser lithotripsy at a later date. At this time, a 10 x 5 Tyler type of endobiliary prosthesis was inserted into the common bile judy t across the ampulla into the duodenum. It should be noted a 10 x 7 CBD stent was not available at t he moment. Photographs were obtained and the procedure was terminated. PLAN: Recommend to follow the patient closely. Dictated By: RADHA COLIN/DELIO Conf#: [id number] [facility]#: [id number]
== END 2019-01-24 15:10 | disposition home or self-care (01) ==
LOC: SDS 08:57 → GIL 08:57
PROVIDERS: ATTEND Internal Medicine Gastroenterology
DX: K80.50 Calculus of bile duct without cholangitis or cholecystitis without obstruction (principal); Z46.59 Encounter for fitting and adjustment of other gastrointestinal appliance and device
CPT/HCPCS: 43264; 43275; 74330; C2617; J0690; J1100; J1170; J1885; J2250; J2405; J2765; J3010; Q9967; Z7512; Z7610

== ENCOUNTER 2019-01-25 20:01 | Observation (INO) | payer OTHER ==
[~2019-01-25] VITALS: Ht 157.5 cm; Wt 67.3 kg
[~2019-01-25 20:01] MED LIST changes: -CIPR500T4 PO; -EPHEDrine 25 MG/5 ML SYG ONE; -HYDR-3980 PO; -METR500T PO; +PROPOFOL 20 ML ONE; -PROPOFOL 200 MG INJ ONE; -SEVOFLURANE 15 MIN ONE
[2019-01-25] MEDS ORDERED: morphine 2 MG INJ IV STA (23:37)
[2019-01-25] MEDS ORDERED: ONDANSETRON 4 MG INJ IV STA (23:37)
[2019-01-25] MEDS ORDERED: SOD CHLORIDE 0.9% 100 ML IV STA (23:37)
--- NOTE | 2019-01-25 23:44 | ERD ---
ER Documentation Chief Complaint Chief Complaint AP x1 day w/ fever and vomiting, hx of surgery yesterday HPI The patient is a 33-year-old female, presenting to the ER because of abdominal pain after eating around 12 PM , c/o subjective fever, vomited twice initially food and phlegm, denies fever, chills, neck pain, chest pain, dyspnea, dysuria, diarrhea She had ERCP yesterday by Dr. Hall, removed the CBD stent/ CBD stones, p erformed sphincterotomy, lithotripsy and placement of another CBD stent ROS All systems reviewed and are negative except as per history of present illness. Medications Home Meds Active Scripts Hydrocodone Bit-Acetaminophen (Hydrocodone Bit-APAP) 5-325MG Tablet, 1 TAB PO Q6H PRN for PAIN for 7 Days, #20 TAB Prov:QUIRINO ADKINS MD 01/28/19 Discontinued Scripts Hydrocodone/Acetaminophen ([place] 10-325 Tablet) 1 Each Tablet, 1 EACH PO Q8 PRN for PAIN, #21 TAB Prov:FANTASMA FIGUEROA 10/15/18 Metronidazole* (Flagyl*) 500 Mg Tablet, 500 MG PO Q8 for 7 Days, #21 TAB Prov:FANTASMA FIGUEROA 10/15/18 Ciprofloxacin Hcl* (Ciprofloxacin Hcl*) 500 Mg Tablet, 500 MG PO BID@06,18 for 7 Days, #14 TAB Prov:FANTASMA FIGUEROA 10/15/18 Allergies Allergies: Coded Allergies: ibuprofen (Verified Allergy, Intermediate, RASH,ITCHING, 01/24/19) PMhx/Soc History of Surgery: Yes (x2 c section, GAL BLADDER) Anesthesia Reaction: No Hx Neurological Disorder: No Hx Respiratory Disorders: No Hx Cardiac Disorders: No Hx Psychiatric Problems: No Hx Miscellaneous Medical Probl: No Hx Alcohol Use: No Hx Substance Use: No Hx Tobacco Use: No Smoking Status: Never smoker Physical Exam Vitals Vital Signs Date Temp Pulse Resp B/P (MAP) Pulse Ox O2 O2 Flow FiO2 Time Delivery Rate 01/25/19 98.7 66 17 156/92 98 20:03 (113) Physical Exam Const: No acute distress. Head: Atraumatic. Eyes: Normal Conjunctiva. ENT: Normal External Ears, Nose and Mouth. Neck: Full range of motion. No meningismus. Resp: Clear to auscultation bilaterally. Cardio: Regular rate and rhythm. Abd: Soft, non distended, normal bowel sounds, vague and diffuse abdominal tenderness, no rigidity/rebound/CVA tenderness Skin: No petechiae or rashes. Back: No midline or flank tenderness. Ext: No cyanosis, or edema. Neur: Awake and alert. No focal deficit Psych: Normal Mood and Affect. Result Diagram: 01/28/19 0505 01/28/19 0505 Results 24 hrs Laboratory Tests Test 01/25/19 23:45 01/25/19 23:46 01/26/19 00:03 01/26/19 00:05 Lactic Acid Level 2.3 mmol/L White Blood Count 9.4 10^3/ul Red Blood Count 3.75 10^6/ul Hemoglobin 11.1 g/dl Hematocrit 34.2 % Mean Corpuscular 91.2 fl Volume Mean Corpuscular 29.6 pg Hemoglobin Mean Corpuscular 32.5 g/dl Hemoglobin Concent Red Cell 13.9 % Distribution Width Platelet Count 208 10^3/UL Mean Platelet 12.0 fl Volume Immature 0.200 % Granulocytes % Neutrophils % 62.8 % Lymphocytes % 28.7 % Monocytes % 7.7 % Eosinophils % 0.3 % Basophils % 0.3 % Nucleated Red 0.0 /100WBC Blood Cells % Immature 0.020 10^3/ul Granulocytes # Neutrophils # 5.9 10^3/ul Lymphocytes # 2.7 10^3/ul Monocytes # 0.7 10^3/ul Eosinophils # 0.0 10^3/ul Basophils # 0.0 10^3/ul Nucleated Red 0.0 10^3/ul Blood Cells # Urine Color YELLOW Urine Clarity SLIGHTLY CLOUDY Urine pH 9.0 Urine Specific 1.011 [place] Urine Ketones NEGATIVE mg/dL Urine Nitrite NEGATIVE mg/dL Urine Bilirubin NEGATIVE mg/dL Urine Urobilinogen NEGATIVE mg/dL Urine Leukocyte NEGATIVE Lior/ul Esterase Urine Microscopic 0 /HPF RBC Urine Microscopic 0 /HPF WBC Urine Squamous FEW /HPF Epithelial Cells Urine Hemoglobin NEGATIVE mg/dL Urine Glucose NEGATIVE mg/dL Urine Total NEGATIVE mg/dl Protein Sodium Level 140 mmol/L Potassium Level 3.8 mmol/L Chloride Level 102 mmol/L Carbon Dioxide 29 mmol/L Level Anion Gap 9 Blood Urea 10 mg/dl Nitrogen Creatinine 0.60 mg/dl Est Glomerular > 60 mL/min Filtrat Rate mL/min Glucose Level 90 mg/dl Calcium Level 9.6 mg/dl Total Bilirubin 0.5 mg/dl Direct Bilirubin 0.00 mg/dl Indirect Bilirubin 0.5 mg/dl Aspartate Amino 29 IU/L Transf (AST/SGOT) Alanine 42 IU/L Aminotransferase ( ALT/SGPT) Alkaline 57 IU/L Phosphatase Total Protein 7.0 g/dl Albumin 4.1 g/dl Globulin 2.90 g/dl Albumin/Globulin 1.41 Ratio Lipase 140 U/L Bedside Urine pH 8.5 (LAB) Bedside Urine Negative Protein (LAB) Bedside Urine Negative Glucose (UA) Bedside Urine Negative Ketones (LAB) Bedside Urine Negative Blood Bedside Urine Negative Nitrite (LAB) Bedside Urine Negative Leukocyte Esterase (L POC Beta HCG, NEGATIVE Qualitative Current Medications Medications Dose Sig/Melba Start Time Status Last (Trade) Ordered Route PRN Stop Time Admin Dose Reason Admin Propofol 20 ml @ ud STK-MED 01/24/19 DC ONCE .ROUTE 10:30 01/25/19 21:24 Rocuronium 50 mg STK-MED 01/24/19 DC [place] ONCE .ROUTE 10:30 (Zemuron) 01/25/19 21:24 Cefazolin 1 gm STK-MED 01/24/19 DC Sodium ONCE .ROUTE 10:30 (Ancef) 01/25/19 21:24 Midazolam 2 mg STK-MED 01/24/19 DC HCl ONCE .ROUTE 10:30 (Versed) 01/25/19 21:24 Fentanyl 100 mcg STK-MED 01/24/19 DC (Sublimaze) ONCE .ROUTE 10:30 01/25/19 21:24 Sodium 100 ml @ Q1H STAT 01/25/19 DC 01/25/19 Chloride 100 mls/hr IV 23:37 23:59 01/26/19 00:36 Morphine 2 mg ONCE STAT 01/25/19 DC 01/25/19 Sulfate IV 23:37 23:54 (morphine) 01/25/19 23:41 Ondansetron 4 mg ONCE STAT 01/25/19 DC 01/25/19 HCl (Zofran IV 23:37 23:54 Inj) 01/25/19 23:41 Ketorolac 30 mg ONCE ONCE 01/26/19 DC Tromethamine IV 00:41 (Toradol) 01/26/19 00:45 Morphine 2 mg ONCE STAT 01/26/19 DC 01/26/19 Sulfate IV 01:32 01:42 (morphine) 01/26/19 01:33 Sodium 1,000 ml @ Q10H IV 01/26/19 DC 01/28/19 Chloride 100 mls/hr 04:03 05:18 01/28/19 11:36 Procedures/MDM [place] [id number] Radiology Main Line: [phone] DIAGNOSTIC IMAGING REPORT Patient: PRISCILA ZAAYS : 1985 Age: 33 Sex: F MR #: [id number] DOS: 01/26/19 0130 Ordering MD: FREDO CACERES MD Location: [facility] Room/Bed: PROCEDURE: CT Abdomen and Pelvis without contrast. CLINICAL INDICATION: Fever TECHNIQUE: CT scan of the abdomen and pelvis without contrast was performed on a multi-detector high-resolution CT scanner. Coronal and sagittal reformatted images obtained from the axial source images. Images were reviewed on a high- resolution PACS workstation. Exam CTDI 9.03 mGy Exam DLP 509.58 mGy-cm DICOM images are available. One or more of the following dose reduction techniques were utilized: 1.) Automated exposure control 2.) Adjustment of the mA +/- kV according to patient's size 3.) Use of iterative reconstruction technique. COMPARISON: CT 10/14/2018 FINDINGS: CT abdomen: LOWER THORAX: There is a small calcified granuloma at the base of the right lung. LIVER AND GALLBLADDER: There is central pneumobilia. A biliary stent is positioned within the common duct, distal portion projects to the duodenum. There are postsurgical changes secondary to cholecystectomy. Minimal fluid within the gallbladder fossa. SPLEEN: Normal. PANCREAS: Normal. ADRENAL GLANDS: Normal. KIDNEYS: Kidneys are symmetric in size and morphology. No hydronephrosis or visible renal calculus. Bilateral ureters are unremarkable. VASCULATURE: Abdominal aorta is normal in caliber. LYMPH NODES: No significant retroperitoneal or mesenteric lymphadenopathy. BOWEL AND MESENTERY: The stomach and small bowel are unremarkable. There is a small amount of residual oral contrast within the large bowel. A normal appendix is identified. Mild diverticulosis of the large bowel. No appreciable thickening of the bowel wall. No inflammatory changes in the mesentery. CT pelvis: The urinary bladder is unremarkable. Uterus and adnexal structures appear normal for age. There is no free fluid in the pelvis. Bones: Regional bones and superficial soft tissues are grossly unremarkable. IMPRESSION: 1. Common duct biliary stent appears to be in satisfactory position. There is associated central pneumobilia. 2. Tiny collection of fluid within the gallbladder fossa, smaller compared with CT imaging of 10/14/2018 and is nonspecific. 3. Diverticulosis of the large bowel. No associated inflammatory changes. RPTAT: [facility] Physician Husam Date Time Electronically viewed and signed by Physician Husam on 01/26/2019 03:31 xB/ CC: FREDO CACERES MD [id number] Consultation: I discussed the patient with her assistant passenger locomotive engineer Dr Hall, who requested a abdominal pelvic CT and recommended to admit the patient MEDICAL MAKING DECISION: The patient is a 23-year-old female, presenting with acute intractable abdominal pain after ERCP, was treated with morphine 2 mg IV x2 for pain and Zofran for medical IV for nausea with good response The differential diagnoses considered include but are not limited to visceral perforation, cholelithiasis, cholecystitis, choledocholithiasis, cholangitis, pancreatitis, hepatitis, gastritis, peptic ulcer disease, gastric ulcer, appendicitis, cystitis, diverticulitis, partial small bowel obstruction. Departure Diagnosis: Primary Impression: Abdominal pain Additional Impression: Anemia Condition: Stable Comments The patient's blood pressure was elevated (>120/80) but appears stable without evidence of hypertension emergency or urgency. The patient was counseled about the risks of hypertension and urged to pursue outpatient monitoring and therapy within a week with their primary care physician. I discussed the findings with the patient. I discussed the patient with Dr Chaidez at 4 am , who was made aware of the lab, the treatment, the patient condition. The patient is admitted to ms obs Disclaimer: Inadvertent spelling and grammatical errors are likely due to EHR /dictation software use and do not reflect on the overall quality of patient care. Also, please note that the electronic time recorded on this note does not necessarily reflect the actual time of the patient encounter. FREDO CACERES MD Jan 25, 2019 23:44
[2019-01-26] MEDS ORDERED: KETOROLAC 30 MG INJ IV ONE (00:41)
[2019-01-26] MEDS ORDERED: morphine 2 MG INJ IV STA (01:32)
[2019-01-26] MEDS: SOD CHLORIDE 0.9% 1,000 ML IV SCH ×3 (04:03→23:41)
[2019-01-26] MEDS ORDERED: NACL 0.9% 3 ML SYG IV SCH (04:30)
[2019-01-26] MEDS ORDERED: DOCUSATE SODIUM 100 MG CAP PO PRN (04:30)
[2019-01-26] MEDS ORDERED: ENALAPRILAT 1.25 MG INJ IV PRN (04:30)
[2019-01-26] MEDS ORDERED: BISACODYL (EC) 5 MG TAB PO PRN (04:30)
[2019-01-26] MEDS: HYDROmorphONE 0.5 MG/0.5 ML SYG IV PRN ×3 (05:03→22:19)
[2019-01-26] MEDS: ONDANSETRON 4 MG INJ IV PRN ×2 (05:03→17:43)
--- NOTE | 2019-01-26 05:38 | HP ---
Date/Time of Note Date/Time of Note DATE: 01/26/19 TIME: 05:35 Assessment/Plan VTE Prophylaxis SCD applied (from Nsg): Yes Pharmacological prophylaxis: NA/contraindicated Pharm contraindication: low risk/ambulating Lines/Catheters IV Catheter Type (from Nrsg): Saline Lock Assessment/Plan Hospital Course This is a 33-year-old female being admitted to the [facility] floor for observation for: 1 abdominal pain: Patient has pain at the epigastrium as well as right upper quadrant. CT scan does not show any acute abnormalities. Biliary stent is in place. Her liver function tests are within normal values. Patient does report burning pain this could be related to possible underlying gastritis/reflux disease. We will put the patient on Protonix. Monitor closely. Pain control. Will consult GI 2. Lactic acidosis: Initial lactate was 2.3. CT scan does not show any acute abnormalities or signs of infection, urinalysis is negative. Will hydrate the patient. No indication for antibiotics at the current time. 3. History of choledocholithiasis: Status post ERCP with CBD stent placement and stone removal. 4 DVT GI prophylaxis: SCDs, Protonix Further treatment strategy will be implemented as per the clinical course. Result Diagram: 01/25/19 2346 01/25/19 2346 Results 24hrs Laboratory Tests Test 01/25/19 23:45 01/25/19 23:46 01/26/19 00:03 01/26/19 00:05 Lactic Acid Level 2.3 *H White Blood Count 9.4 # Red Blood Count 3.75 L Hemoglobin 11.1 L Hematocrit 34.2 L Mean Corpuscular 91.2 Volume Mean Corpuscular 29.6 Hemoglobin Mean Corpuscular 32.5 Hemoglobin Concen t Red Cell 13.9 Distribution Width Platelet Count 208 # Mean Platelet 12.0 H Volume Immature 0.200 Granulocytes % Neutrophils % 62.8 Lymphocytes % 28.7 Monocytes % 7.7 Eosinophils % 0.3 Basophils % 0.3 Nucleated Red 0.0 Blood Cells % Immature 0.020 Granulocytes # Neutrophils # 5.9 Lymphocytes # 2.7 Monocytes # 0.7 Eosinophils # 0.0 Basophils # 0.0 Nucleated Red 0.0 Blood Cells # Urine Color YELLOW Urine Clarity SLIGHTLY CLOUDY A Urine pH 9.0 Urine Specific 1.011 [place] Urine Ketones NEGATIVE Urine Nitrite NEGATIVE Urine Bilirubin NEGATIVE Urine NEGATIVE Urobilinogen Urine Leukocyte NEGATIVE Esterase Urine Microscopic 0 RBC Urine Microscopic 0 WBC Urine Squamous FEW Epithelial Cells Urine Hemoglobin NEGATIVE Urine Glucose NEGATIVE Urine Total NEGATIVE Protein Sodium Level 140 Potassium Level 3.8 Chloride Level 102 Carbon Dioxide 29 Level Anion Gap 9 Blood Urea 10 Nitrogen Creatinine 0.60 Est Glomerular > 60 Filtrat Rate mL/min Glucose Level 90 Calcium Level 9.6 Total Bilirubin 0.5 Direct Bilirubin 0.00 Indirect 0.5 Bilirubin Aspartate Amino 29 Transf (AST/SGOT) Alanine 42 Aminotransferase (ALT/SGPT) Alkaline 57 Phosphatase Total Protein 7.0 Albumin 4.1 Globulin 2.90 Albumin/Globulin 1.41 Ratio Lipase 140 Bedside Urine pH 8.5 (LAB) Bedside Urine Negative Protein (LAB) Bedside Urine Negative Glucose (UA) Bedside Urine Negative Ketones (LAB) Bedside Urine Negative Blood Bedside Urine Negative Nitrite (LAB) Bedside Urine Negative Leukocyte Esteras e (L POC Beta HCG, NEGATIVE Qualitative HPI/ROS Admit Date/Time Admit Date/Time Hx of Present Illness Chief complaint: Abdominal pain, subjective fever, 1 day This is a 33-year-old female who is postop ERCP on 01/24 who presents today with subjective fever as well as abdominal pain. Patient reports that she ate food yesterday and started experiencing pain in the abdomen on the epigastric area and radiating to the left side. She also report feeling hot but she did not check her temperature. Reports vomiting as well. She states the pain was like a burning/pulling sensation. She had an ERCP done on 01/24 where she had CBD stents removed as well as a stent placed. Allergies: Ibuprofen medications: See ELEAZAR MAYO Const: As per HPI Eyes : No pain discharge or redness or change in visual acuity ENT: No pain, sore throat, congestion, congestion, dysphagia or discharge Respiratory: No shortness of breath, cough, sputum, wheezing, or pleuritic pain Cardiovascular: No chest pain, palpitation, PND, or edema GI : As per HPI Genitourinary: No dysuria, hematuria, flank pain , discharge or CVA tenderness Musculoskeletal: No joint pain, back pain, neck pain, restricted range of motion in neck or joints Skin: No rash, bruising or hives Neuro: No headache, dizziness, syncope, seizure, focal weakness Endocrine: No polyuria, polydipsia, temperature intolerance Psych: No hallucination, depression, anxiety or suicidal ideation PMH/Family/Social Past Medical History GERD, choledocholithiasis Medications Current Medications Sodium Chloride 1,000 ml @ 100 mls/hr Q10H IV ; Start 01/26/19 at 04:03 IV Flush (NS 3 ml) 3 ml PER PROTOCOL IV ; Start 01/26/19 at 04:30 Ondansetron HCl (Zofran Inj) 4 mg Q6H PRN IV NAUSEA/VOMITING Last administered on 01/26/19at 05:03; Admin Dose 4 MG; Start 01/26/19 at 04:30 Acetaminophen (Tylenol Tab) 650 mg Q6H PRN PO .PAIN 1-3 OR TEMP; Start 01/26/19 at 04:30 Hydromorphone HCl (Dilaudid) 0.5 mg Q4H PRN IV .SEVERE PAIN 7-10 Last ad ministered on 01/26/19at 05:03; Admin Dose 0.5 MG; Start 01/26/19 at 04:30 Docusate Sodium (Colace) 100 mg Q12H PRN PO .CONSTIPATION; Start 01/26/19 at 04:30 Bisacodyl (Dulcolax) 5 mg DAILY PRN PO .CONSTIPATION; Start 01/26/19 at 04:30 Enalaprilat (Vasotec Iv) 0.625 mg Q4H PRN IV ELEVATED BLOOD PRESSURE; Start 01/26/19 at 04:30 Coded Allergies: ibuprofen (Verified Allergy, Intermediate, RASH,ITCHING, 01/24/19) Past Surgical History Cholecystectomy, status post ERCP CBD stent placement Family History Significant Family History: no pertinent family hx Social History Alcohol Use: none Smoking Status: Never smoker Drug Use: none Exam/Review of Systems Vital Signs Vitals Vital Signs Date Temp Pulse Resp B/P (MAP) Pulse Ox O2 O2 Flow FiO2 Time Delivery Rate 01/26/19 98.4 50 18 103/67 100 Room Air 05:09 (79) Exam Exam General: Patient is a pleasant female currently lying in bed in mild distress from abdominal pain HEENT: Atraumatic, normocephalic. The pupils are equal, round and reactive. Extraocular motor are intact Neck: Supple with full range of motion. No rigidity or meningismus Chest: Nontender Lungs: Clear to auscultation bilaterally no crackles rales or wheezing Heart: Normal S1-S2, Regular rhythm and rate. No murmur, S3, or S4 Abdomen: Soft , tender to palpation over the epigastric area as well as over the right upper quadrant, nondistended , bowel sounds are present. No guarding no rebound tenderness , No masses or organomegaly. No costovertebral temporal angle mass Extremities: Normal to inspection, no edema no cyanosis Neurologic: Normal mental status, speech normal, cranial nerves II through XII are intact, motor and sensory are intact, no focal weakness Additional Comments PROCEDURE: CT Abdomen and Pelvis without contrast. CLINICAL INDICATION: Fever TECHNIQUE: CT scan of the abdomen and pelvis without contrast was performed on a multi-detector high-resolution CT scanner. Coronal and sagittal reformatted images obtained from the axial source images. Images were reviewed on a high- resolution PACS workstation. Exam CTDI 9.03 mGy Exam DLP 509.58 mGy-cm DICOM images are available. One or more of the following dose reduction techniques were utilized: 1.) Automated exposure control 2.) Adjustment of the mA +/- kV according to patient's size 3.) Use of iterative reconstruction technique. COMPARISON: CT 10/14/2018 FINDINGS: CT abdomen: LOWER THORAX: There is a small calcified granuloma at the base of the right lung. LIVER AND GALLBLADDER: There is central pneumobilia. A biliary stent is positioned within the common duct, distal portion projects to the duodenum. There are postsurgical changes secondary to cholecystectomy. Minimal fluid within the gallbladder fossa. SPLEEN: Normal. PANCREAS: Normal. ADRENAL GLANDS: Normal. KIDNEYS: Kidneys are symmetric in size and morphology. No hydronephrosis or visible renal calculus. Bilateral ureters are unremarkable. VASCULATURE: Abdominal aorta is normal in caliber. LYMPH NODES: No significant retroperitoneal or mesenteric lymphadenopathy. BOWEL AND MESENTERY: The stomach and small bowel are unremarkable. There is a small amount of residual oral contrast within the large bowel. A normal appendix is identified. Mild diverticulosis of the large bowel. No appreciable thickening of the bowel wall. No inflammatory changes in the mesentery. CT pelvis: The urinary bladder is unremarkable. Uterus and adnexal structures appear normal for age. There is no free fluid in the pelvis. Bones: Regional bones and superficial soft tissues are grossly unremarkable. IMPRESSION: 1. Common duct biliary stent appears to be in satisfactory position. There is associated central pneumobilia. 2. Tiny collection of fluid within the gallbladder fossa, smaller compared with CT imaging of 10/14/2018 and is nonspecific. 3. Diverticulosis of the large bowel. No associated inflammatory changes. RPTAT: [facility] Physician Husam Date Time Electronically viewed and signed by Rachid Graves Physician on 01/26/2019 03:31 xB/ CC: FREDO CACERES MD [id number] ELLEN PEPPER Jan 26, 2019 05:38
[2019-01-26 06:03] VITALS: BP 125/68; PULSE 55; RESP 18
[2019-01-26 06:24] VITALS: Ht 157.5 cm; Wt 67.3 kg
[2019-01-26 08:16] VITALS: BP 120/62; PULSE 51; RESP 16
[2019-01-26] MEDS: SUCRALFATE 1 GM TAB PO SCH ×4 (09:54→21:06)
[2019-01-26] MEDS: PANTOPRAZOLE (EC) 40 MG TAB PO SCH (09:54)
--- NOTE | 2019-01-26 09:59 | QN ---
Documentation Comment 83-year-old female with a recent ERCP with CBD stent placed, admitted with intractable generalized abdominal pain... CT, labs stable. Patient continues to have abdominal pain. She is awaiting for GI evaluation and we will follow-up their recommendations. Continue Protonix and pain control. Diet once pain is improved. Case discussed with Dr. Schaeffer. PREETHI KIM NP Jan 26, 2019 09:59
[2019-01-26 14:40] VITALS: BP 114/73; PULSE 52; RESP 17
--- NOTE | 2019-01-26 18:26 | CONS ---
DATE OF ADMISSION: 01/26/2019 DATE OF CONSULTATION: TYPE OF CONSULTATION: Gastroenterology. Dear Dr. Pepper: Thank you for asking me to see Mrs. Jordan in GI consultation. HISTORY OF PRESENT ILLNESS: The patient, as you know, is a 33-year-old female admitted to [facility] through the emergency room because of abdominal pain. On 01/24/2019, she underwent ERCP and at that time, she had multiple common bile duct stones noted during ERCP. Lithotripsy was used a nd all the stones were broken down into pieces and most of the stones were removed. CBD stent also w as placed. At that time, she also had sphincterotomy, removal of previous stent placement and follow ing the procedure, CBD stent was placed again. In the emergency room, she had abdominal pain, but no w upon questioning says she is feeling better, no nausea, no vomiting, no GI bleeding, no fever, no j aundice, no diarrhea. MEDICATIONS PRIOR TO ADMISSION: None. PHYSICAL EXAMINATION: GENERAL: The patient is a 33-year-old female who at this time she is alert, she is afebrile . CARDIOVASCULAR: Normal heart sounds. RESPIRATORY: Normal breath sounds. ABDOMEN: Soft. No tenderness. No distention. VITAL SIGNS: Temperature is 98.1, blood pressure 114/73. LABORATORY WORKUP: WBC count 6300, hemoglobin 10.2. Chemistry: Potassium 3.8. AST 25, ALT 34, alk henry phosphatase 49, lipase is 140. hCG test is negative. DIAGNOSTIC DATA: CAT scan of the abdomen was ordered last night which showed evidence of common duct biliary stent in satisfactory position. Pneumobilia noted. Tiny collection of fluid within the gal lbladder fossa noted, smaller compared with CT imaging of 10/14/2018 and nonspecific diverticulosis o f the large colon noted. CLINICAL IMPRESSION: The patient is presenting with history of abdominal pain, status post ERCP, rem oval of multiple stones after lithotripsy and placement of common bile duct stent. It is quite possi ble that we may be dealing with mild degree of cholangitis, although liver functions are normal. Whi te count is 9400. Since she seems to be improving, it appears that we can continue symptomatic treat ment. She is currently on pantoprazole, Carafate and cefazolin. PLAN: Continue present management and we can probably discharge her in a day or 2 when she is sympto matically feeling better. Dictated By: RADHA COLIN/NTS Conf#: [id number] DID#: [id number] CC: ELLEN PEPPER MD;*EndCC*
[2019-01-26 19:55] VITALS: BP 116/77; PULSE 53; RESP 16
[2019-01-27 01:46] VITALS: BP 108/57; PULSE 59; RESP 16
[2019-01-27] MEDS: ACETAMINOPHEN 325 MG TAB PO PRN ×2 (04:51→12:13)
[2019-01-27] MEDS: ONDANSETRON 4 MG INJ IV PRN (04:51)
[2019-01-27] MEDS: PANTOPRAZOLE (EC) 40 MG TAB PO SCH (04:55)
[2019-01-27] MEDS: HYDROmorphONE 0.5 MG/0.5 ML SYG IV PRN ×2 (05:34→20:23)
[2019-01-27 07:42] VITALS: BP 102/58; PULSE 52; RESP 16
[2019-01-27] MEDS: SUCRALFATE 1 GM TAB PO SCH ×4 (07:51→20:03)
[2019-01-27] MEDS: SOD CHLORIDE 0.9% 1,000 ML IV SCH ×2 (10:33→20:23)
--- NOTE | 2019-01-27 12:52 | PN ---
Date/Time of Note Date/Time of Note DATE: 01/27/19 TIME: 12:51 Assessment/Plan VTE Prophylaxis Risk score (from Ns)>0 risk: 0 SCD applied (from Ns): No SCD contraindicated: low risk/ambulating Pharmacological prophylaxis: heparin Pharm contraindication: low risk/ambulating Lines/Catheters IV Catheter Type (from [facility] Peripheral IV Assessment/Plan Problems: (1) Intractable abdominal pain Status: Acute Comment: She is improving. I am in agreement this may represent some low-grade case of cholangitis even though her white counts have come down nicely. We will recheck her labs tomorrow but if she continues to improve we may be able to discharge her tomorrow (2) History of biliary duct stent placement Onset Date: ~ 01/24/2019 Status: Acute Comment: Stable and apparently operational. (3) Choledocholithiasis Status: Chronic Comment: Noted. Result Diagram: 01/27/19 0451 01/27/19 0451 Results 24hrs Laboratory Tests Test 01/27/19 04:51 White Blood Count 5.1 Red Blood Count 3.50 L Hemoglobin 10.5 L Hematocrit 32.7 L Mean Corpuscular Volume 93.4 Mean Corpuscular Hemoglobin 30.0 Mean Corpuscular Hemoglobin Concent 32.1 Red Cell Distribution Width 14.1 Platelet Count 170 Mean Platelet Volume 11.3 H Immature Granulocytes % 0.200 Neutrophils % 38.1 L Lymphocytes % 49.8 Monocytes % 8.2 Eosinophils % 3.1 Basophils % 0.6 Nucleated Red Blood Cells % 0.0 Immature Granulocytes # 0.010 Neutrophils # 1.9 Lymphocytes # 2.5 Monocytes # 0.4 Eosinophils # 0.2 Basophils # 0.0 Nucleated Red Blood Cells # 0.0 Sodium Level 139 Potassium Level 3.9 Chloride Level 102 Carbon Dioxide Level 28 Anion Gap 9 Blood Urea Nitrogen 8 Creatinine 0.61 Est Glomerular Filtrat Rate mL/min > 60 Glucose Level 83 Calcium Level 8.8 Total Bilirubin 0.8 Direct Bilirubin 0.00 Indirect Bilirubin 0.8 Aspartate Amino Transf (AST/SGOT) 20 Alanine Aminotransferase (ALT/SGPT) 31 Alkaline Phosphatase 50 Total Protein 6.2 Albumin 3.5 Globulin 2.70 Albumin/Globulin Ratio 1.29 Subjective 24 Hr Interval Summary Free Text/Dictation She reports that she is feeling somewhat better but still is having some issues when she eats Constitutional: no complaints Respiratory: no complaints Cardiovascular: no complaints Gastrointestinal: pain Exam/Review of Systems Exam Vitals Vital Signs Date Temp Pulse Resp B/P (MAP) Pulse Ox O2 O2 Flow FiO2 Time Delivery Rate 01/27/19 98.6 52 16 102/58 100 Room Air 07:42 (73) Intake and Output 01/26/19 01/26/19 01/27/19 1515:00 23:00 07:00 IntakeIntake Total 480 ml 820 ml 1500 ml BalanceBalance 480 ml 820 ml 1500 ml Constitutional: alert, oriented Respiratory: clear to auscultation, normal air movement Cardiovascular: regular rate and rhythm, nl pulses Gastrointestinal: soft, nl liver, spleen, tender (Minimal non-rebound epigastric tenderness) Results Results 24hrs Laboratory Tests Test 01/27/19 04:51 White Blood Count 5.1 Red Blood Count 3.50 L Hemoglobin 10.5 L Hematocrit 32.7 L Mean Corpuscular Volume 93.4 Mean Corpuscular Hemoglobin 30.0 Mean Corpuscular Hemoglobin Concent 32.1 Red Cell Distribution Width 14.1 Platelet Count 170 Mean Platelet Volume 11.3 H Immature Granulocytes % 0.200 Neutrophils % 38.1 L Lymphocytes % 49.8 Monocytes % 8.2 Eosinophils % 3.1 Basophils % 0.6 Nucleated Red Blood Cells % 0.0 Immature Granulocytes # 0.010 Neutrophils # 1.9 Lymphocytes # 2.5 Monocytes # 0.4 Eosinophils # 0.2 Basophils # 0.0 Nucleated Red Blood Cells # 0.0 Sodium Level 139 Potassium Level 3.9 Chloride Level 102 Carbon Dioxide Level 28 Anion Gap 9 Blood Urea Nitrogen 8 Creatinine 0.61 Est Glomerular Filtrat Rate mL/min > 60 Glucose Level 83 Calcium Level 8.8 Total Bilirubin 0.8 Direct Bilirubin 0.00 Indirect Bilirubin 0.8 Aspartate Amino Transf (AST/SGOT) 20 Alanine Aminotransferase (ALT/SGPT) 31 Alkaline Phosphatase 50 Total Protein 6.2 Albumin 3.5 Globulin 2.70 Albumin/Globulin Ratio 1.29 Medications Medication Current Medications Sodium Chloride 1,000 ml @ 100 mls/hr Q10H IV Last administered on 01/27/19at 10:33; Admin Dose 100 MLS/HR; Start 01/26/19 at 04:03 IV Flush (NS 3 ml) 3 ml PER PROTOCOL IV ; Start 01/26/19 at 04:30 Ondansetron HCl (Zofran Inj) 4 mg Q6H PRN IV NAUSEA/VOMITING Last administered on 01/27/19 04:51; Admin Dose 4 MG; Start 01/26/19 at 04:30 Acetaminophen (Tylenol Tab) 650 mg Q6H PRN PO .PAIN 1-3 OR TEMP Last administered on 01/27/19 12:13; Admin Dose 650 MG; Start 01/26/19 at 04:30 Hydromorphone HCl (Dilaudid) 0.5 mg Q4H PRN IV .SEVERE PAIN 7-10 Last administered on 01/27/19 05:34; Admin Dose 0.5 MG; Start 01/26/19 at 04:30 Docusate Sodium (Colace) 100 mg Q12H PRN PO .CONSTIPATION; Start 01/26/19 at 04:30 Bisacodyl (Dulcolax) 5 mg DAILY PRN PO .CONSTIPATION; Start 01/26/19 at 04:30 Enalaprilat (Vasotec Iv) 0.625 mg Q4H PRN IV ELEVATED BLOOD PRESSURE; Start 01/26/19 at 04:30 Pantoprazole (Protonix Tab) 40 mg DAILY@06 PO Last administered on 01/27/19 04:55; Admin Dose 40 MG; Start 01/26/19 at 09:00 Sucralfate (Carafate) 1 gm QID PO Last administered on 01/27/19 07:51; Admin Dose 1 GM; Start 01/26/19 at 09:00 QUIRINO ADKINS MD Jan 27, 2019 12:52
[2019-01-27 14:25] VITALS: BP 99/55; PULSE 55; RESP 16
--- NOTE | 2019-01-27 19:42 | PN ---
DATE: 01/27/2019 SUBJECTIVE: The patient says she is feeling much better. She was admitted to the hospital for abdom inal pain and she had ERCP done and multiple stones were removed after lithotripsy and CBD stent was placed and on admission, she has abdominal pain. PHYSICAL EXAMINATION: At this time shows: VITAL SIGNS: She is afebrile. ABDOMEN: Soft and nontender. LABORATORY WORKUP: WBC count 5100, hemoglobin 10.5. The potassium is 3.9, AST is 20, ALT is 31, alk henry phosphatase is 50. CLINICAL IMPRESSION: Status post ERCP and multiple common bile duct stones removal, after lithotrips y, CBD stent was placed because there was still a large stone left behind, which needs to be removed with the lithotripsy procedure after a few days. PLAN: Okay to discharge the patient. Dictated By: RADHA NELSON MD NC/NTS Conf#: [id number] DID#: [id number] CC: ELLEN PEPPER MD;*End*
[2019-01-27 20:06] VITALS: BP 128/74; PULSE 57; RESP 20
[2019-01-28 01:41] VITALS: BP 102/61; PULSE 67; RESP 19
[2019-01-28] MEDS: HYDROmorphONE 0.5 MG/0.5 ML SYG IV PRN (01:54)
[2019-01-28] MEDS: PANTOPRAZOLE (EC) 40 MG TAB PO SCH (05:17)
[2019-01-28] MEDS: SOD CHLORIDE 0.9% 1,000 ML IV SCH (05:18)
[2019-01-28 07:32] VITALS: BP 105/63; PULSE 53; RESP 16
[2019-01-28] MEDS: SUCRALFATE 1 GM TAB PO SCH (08:00)
--- NOTE | 2019-01-28 09:10 | DS ---
Date/Time of Note Date/Time of Note DATE: 01/28/19 TIME: 09:06 Discharge Summary Admission/Discharge Info Admit Date/Time Jan 26, 2019 at 04:03 Discharge Date/Time January 28, 2019 Discharge Diagnosis Biliary colic with choledocholithiasis; biliary stent; Patient Condition: Good Consults Gastroenterology-Dr. Hall Procedures Abdominal pelvic CT scan;IMPRESSION: 1. Common duct biliary stent appears to be in satisfactory position. There is associated central pneumobilia. 2. Tiny collection of fluid within the gallbladder fossa, smaller compared with CT imaging of 10/14/2018 and is nonspecific. 3. Diverticulosis of the large bowel. No associated inflammatory changes. Hx of Present Illness Hx of Present Illness Chief complaint: Abdominal pain, subjective fever, 1 day This is a 33-year-old female who is postop ERCP on 01/24 who presents today with subjective fever as well as abdominal pain. Patient reports that she ate food yesterday and started experiencing pain in the abdomen on the epigastric area and radiating to the left side. She also report feeling hot but she did not check her temperature. Reports vomiting as well. She states the pain was like a burning/pulling sensation. She had an ERCP done on 01/24 where she had CBD stents removed as well as a stent placed. HISTORY OF PRESENT ILLNESS: The patient, as you know, is a 33-year-old female admitted to the hospital through the emergency room because of abdominal pain. On 01/24/2019, she underwent ERCP and at that time, she had multiple common bile duct stones noted during ERCP. Lithotripsy was used and all the stones were broken down into pieces and most of the stones were removed. CBD stent also was placed. At that time, she also had sphincterotomy, removal of previous stent placement and following the procedure, CBD stent was placed again. In the emergency room, she had abdominal pain, but now upon questioning says she is feeling better, no nausea, no vomiting, no GI bleeding, no fever, no jaundice, no diarrhea. Hospital Course Pleasant 33-year-old female admitted with biliary colic. Patient was seen in consultation by her regular transit specialist who advises as below SUBJECTIVE: The patient says she is feeling much better. She was admitted to the hospital for abdominal pain and she had ERCP done and multiple stones were removed after lithotripsy and CBD stent was placed and on admission, she has abdominal pain. PHYSICAL EXAMINATION: At this time shows: VITAL SIGNS: She is afebrile. ABDOMEN: Soft and nontender. LABORATORY WORKUP: WBC count 5100, hemoglobin 10.5. The potassium is 3.9, AST is 20, ALT is 31, alkaline phosphatase is 50. CLINICAL IMPRESSION: Status post ERCP and multiple common bile duct stones removal, after lithotripsy, CBD stent was placed because there was still a large stone left behind, which needs to be removed with the lithotripsy procedure after a few days. PLAN: Okay to discharge the patient. Dictated By: RADHA HALL MD Patient is still having some pain but is feeling much better. She requests to be discharged and she will be discharged with pain medications to follow-up with Dr. Hall of gastroenterology Home Meds Discontinued Scripts Hydrocodone/Acetaminophen ([place] 10-325 Tablet) 1 Each Tablet, 1 EACH PO Q8 PRN for PAIN, #21 TAB Prov:FANTASMA FIGUEROA 10/15/18 Metronidazole* (Flagyl*) 500 Mg Tablet, 500 MG PO Q8 for 7 Days, #21 TAB Prov:FANTASMA FIGUEROA 10/15/18 Ciprofloxacin Hcl* (Ciprofloxacin Hcl*) 500 Mg Tablet, 500 MG PO BID@06,18 for 7 Days, #14 TAB Prov:FANTASMA FIGUEROA 10/15/18 Follow-up Plan Gastroenterology in 2-3 days Primary Care Provider Not On Staff Doctor Time spent on discharge: > 30 minutes Pending Labs Laboratory Tests Test 01/28/19 05:05 White Blood Count 4.8 10^3/ul (4.8-10.8) Red Blood Count 3.43 10^6/ul (4.20-5.40) Hemoglobin 10.3 g/dl (12.0-16.0) Hematocrit 31.7 % (37.0-47.0) Mean Corpuscular Volume 92.4 fl (82.0-101.0) Mean Corpuscular Hemoglobin 30.0 pg (29.0-33.0) Mean Corpuscular Hemoglobin Concent 32.5 g/dl (32.0-37.0) Red Cell Distribution Width 13.6 % (11.5-14.5) Platelet Count 172 10^3/UL (140-415) Mean Platelet Volume 12.0 fl (7.4-10.4) Immature Granulocytes % 0.200 % (0.001-0.429) Neutrophils % 40.6 % (39.0-77.0) Lymphocytes % 45.4 % (15.0-51.0) Monocytes % 8.4 % (0.0-11.0) Eosinophils % 5.0 % (0.0-7.0) Basophils % 0.4 % (0.0-2.0) Nucleated Red Blood Cells % 0.0 /100WBC (0.0-0.0) Immature Granulocytes # 0.010 10^3/ul (0.0-0.031) Neutrophils # 1.9 10^3/ul (1.6-7.5) Lymphocytes # 2.2 10^3/ul (0.8-2.9) Monocytes # 0.4 10^3/ul (0.3-0.9) Eosinophils # 0.2 10^3/ul (0.0-0.5) Basophils # 0.0 10^3/ul (0.0-0.1) Nucleated Red Blood Cells # 0.0 10^3/ul (0.0-0.0) Sodium Level 139 mmol/L (135-144) Potassium Level 3.6 mmol/L (3.5-5.1) Chloride Level 106 mmol/L (97-110) Carbon Dioxide Level 26 mmol/L (21-31) Anion Gap 7 (5-13) Blood Urea Nitrogen 5 mg/dl (7-20) Creatinine 0.53 mg/dl (0.44-1.00) Est Glomerular Filtrat Rate mL/min > 60 mL/min (>60) Glucose Level 89 mg/dl (70-220) Calcium Level 8.9 mg/dl (8.4-10.2) Total Bilirubin 0.7 mg/dl (0.2-1.3) Direct Bilirubin 0.00 mg/dl (0.00-0.20) Indirect Bilirubin 0.7 mg/dl (0-1.1) Aspartate Amino Transf (AST/SGOT) 23 IU/L (15-46) Alanine Aminotransferase (ALT/SGPT) 32 IU/L (13-69) Alkaline Phosphatase 49 IU/L (42-121) Total Protein 6.0 g/dl (6.1-8.1) Albumin 3.2 g/dl (3.3-4.9) Globulin 2.80 g/dl (1.3-3.2) Albumin/Globulin Ratio 1.14 Copies To: CC: RADHA HALL MD ; QUIRINO ADKINS MD Jan 28, 2019 09:10
--- NOTE | 2019-01-28 09:11 | PDOCDIS ---
Discharge Instructions DIAGNOSIS Discharge Diagnosis Biliary colic with choledocholithiasis; biliary stent; CONDITION [id number] Patient Condition: [id number] Good HOME CARE INSTRUCTIONS: [id number] Diet Instructions: [id number] Low Fat /Cholesterol ACTIVITY: [id number] Activity Restrictions: [id number] No Restrictions FOLLOW UP/APPOINTMENTS Follow-up Plan Gastroenterology in 2-3 days QUIRINO ADKINS MD Jan 28, 2019 09:11
[2019-01-28] MEDS ORDERED: HYDR-3601 PO (09:12)
== END 2019-01-28 11:33 | disposition home or self-care (01) ==
LOC: FTE 20:01 → 2NE 01-26 04:03
PROVIDERS: ADMIT Family Medicine; ATTEND Family Medicine
DX: K80.50 Calculus of bile duct without cholangitis or cholecystitis without obstruction (principal)
CPT/HCPCS: 36415; 74176; 80053; 80061; 81001; 81003; 81025; 83036; 83605; 83690; 83735; 84443; 85025; 87040; 96374; 96375; 96376; J1170; J1885; J2270; J2405; J7030; J7040; Z7500; Z7502; Z7610; G0378; J0690; J2250; J3010

== ENCOUNTER 2019-02-15 12:12 | Day surgery (SDC) | payer OTHER ==
[2019-02-15] VITALS (20 sets, daily range): BP systolic 85–127; BP diastolic 49–78; PULSE 46–73; RESP 8–75; Ht 157.5 cm; Wt 64.1 kg
[~2019-02-15] VITALS: Ht 157.5 cm; Wt 64.1 kg
[~2019-02-15 12:12] MED LIST changes: -CEFAZOLIN 1 GM INJ ONE; -FENTAnyl 50 MCG/ML VIAL ONE; +HYDR-3601 PO; -MIDAZOLAM 1 MG/ML 2 ML INJ ONE; -PROPOFOL 20 ML ONE; -ROCURONIUM 50 MG INJ ONE
[2019-02-15] MEDS ORDERED: RANI300T PO (14:10)
[2019-02-15] MEDS ORDERED: INDOMETHACIN 50 MG SUPP PR ONE (14:30)
[2019-02-15] MEDS ORDERED: IOHEXOL 300MG/ML 30 ML BTL ONE (14:49)
--- NOTE | 2019-02-15 15:08 | PREAC ---
Date/Time of Note Date/Time of Note DATE: 02/15/19 TIME: 15:05 Anesthesia Eval and Record Evaluation Time Pre-Procedure Interview DATE: 02/15/19 TIME: 15:05 Age 33 Sex female NPO: 8 hrs Preoperative diagnosis Biliary [place] Planned procedure ERCP Past Medical History Past Medical History: None Surgery & Anesthesia Issues No known issue Meds Anticoagulation: No Beta Asif within 24 hr: No Reason Beta Asif not given: Pt. not on B-Asif Reported Medications Ranitidine Hcl* (Ranitidine Hcl*) 300 Mg Tablet, 300 MG PO HS, #30 TAB 02/15/19 Discontinued Scripts Hydrocodone Bit-Acetaminophen (Hydrocodone Bit-APAP) 5-325MG Tablet, 1 TAB PO Q6H PRN for PAIN for 7 Days, #20 TAB Prov:QUIRINO ADKINS MD 01/28/19 Meds reviewed: Yes Allergies Coded Allergies: ibuprofen (Verified Allergy, Intermediate, RASH,ITCHING, 02/15/19) Allergies Reviewed: Yes Labs/Studies Labs Reviewed: Reviewed by anesthesiologist test: Negative Pre-procedure Exam Last vitals Vital Signs Date Temp Pulse Resp B/P (MAP) Pulse Ox O2 O2 Flow FiO2 Time Delivery Rate 02/15/19 98.7 61 16 122/72 100 Room Air 13:42 (89) Airway: Adequate mouth opening Mallampati: Mallampati II Teeth: Normal Lung: Normal Heart: Normal ASA Physical Status ASA physical status: 2 Emergency: None Planned Anesthetic General/MAC: ETT Pre-operative Attestations Prior to commencing anesthesia and surgery, the patient was re-evaluated, there was verification of: *The patient's identity *The results of appropriate recent lab work and preoperative vital signs *The above evaluation not changing prior to induction *Anesthetic plan, risk benefits, alternative and complications discussed with patient/family; questions answered; patient/family understands, accepts and wishes to proceed. MORENA MEJIA MD February 15, 2019 15:08
[2019-02-15] MEDS ORDERED: GLYCOPYRROLATE 0.4 MG INJ ONE (15:13)
[2019-02-15] MEDS ORDERED: PROPOFOL 20 ML ONE (15:13)
[2019-02-15] MEDS ORDERED: ROCURONIUM 50 MG INJ ONE (15:13)
[2019-02-15] MEDS ORDERED: NEOSTIGMINE 3 MG/3 ML SYRINGE ONE (15:13)
[2019-02-15] MEDS ORDERED: MIDAZOLAM 1 MG/ML 2 ML INJ ONE (15:14)
[2019-02-15] MEDS ORDERED: PHENYLephrine (100 MCG/ML) 10ML SYG ONE (16:01)
--- NOTE | 2019-02-15 17:39 | PAC ---
Date/Time of Note Date/Time of Note DATE: 02/15/19 TIME: 17:38 Post-Anesthesia Notes Post-Anesthesia Note Last documented vital signs Vital Signs Date Temp Pulse Resp B/P (MAP) Pulse Ox O2 O2 Flow FiO2 Time Delivery Rate 02/15/19 98.7 61 16 122/72 100 Room Air 13:42 (89) Activity: WNL Respiratory function: WNL Cardiovascular function: WNL Mental status: Baseline Pain reasonably controlled: Yes Hydration appropriate: Yes Nausea/Vomiting absent: Yes MORENA MEJIA MD February 15, 2019 17:38
--- NOTE | 2019-02-15 17:41 | OPR ---
Date/Time of Note Date/Time of Note DATE: 02/15/19 TIME: 17:36 Operative Report Preoperative Diagnosis cbd stones Postoperative Diagnosis same Operation/Procedure Performed ercp Surgeon see signature line Zipper Joiner none Second Zipper Joiner: A Anesthesia Type: general Anesthesiologist: MORENA MEJIA MD Estimated Blood Loss: none Transfusion none Specimen none Grafts/Implants none Complications none Pt Condition Post Procedure: stable Disposition: PACU Indications cbd stones large Procedure Description ercp done cbd stent removed spy glass exam performed large cbd stones noted laser lithotrypsy performed fragments removed trapezoid lithotrypsy performed stopmeredith rtemoved cbd stent placed RADHA NELSON MD February 15, 2019 17:41
[2019-02-15] MEDS: ONDANSETRON 4 MG INJ IV PRN ×2 (17:46→18:48)
[2019-02-15] MEDS: HYDROmorphONE 1 MG/5 ML IV SYRINGE IV PRN ×5 (17:46→18:07)
--- NOTE | 2019-02-16 04:43 | GILP ---
DATE OF PROCEDURE: 02/15/2019 PROCEDURE: Endoscopic retrograde cholangiopancreatography. PREOPERATIVE DIAGNOSES: The patient has a large common bile duct stones. The patient also has a CBD stent in place. Procedure at this time is performed to remove this stent and also remove the stones . POSTOPERATIVE DIAGNOSES: Multiple large common bile duct stones and also largest cystic duct stones were noted. The SpyGlass was used. Laser lithotripsy was performed. Fragments of the stones were r emoved. Subsequently, trapezoid lithotripter was used to crush the remaining stones. Fragments barry elda. CBD stent was placed. DESCRIPTION OF PROCEDURE: After the informed written consent was obtained, the patient was intubated by anesthesiologist. His name is Dr. Talamantes. When the patient was in prone position, Olympus vide o side-viewing duodenoscope was inserted into the oropharynx, then into the esophagus, subsequently i nto the stomach and then into the duodenum. There is evidence of a stone stent noted coming out of t he papillary opening of the ampulla. By using the snare, the stent was removed. Subsequently, by us ing the stone extraction balloon, contrast was injected into the common bile duct. Multiple stones w ere noted in the common bile duct. There are large stones noted. Cystic duct stones also were noted . At this time, the balloon was removed. The SpyGlass made by the [employer] was inserted in to the common bile duct and through the SpyGlass, a laser probe was inserted. Multiple stones were c rushed. Please look into the nursing record to see the power of voltage and to find out the amount o f energy that he used. Multiple fragments were seen coming out of the laser lithotripsy. At this ti me, the SpyGlass was removed. Balloon was inserted into the common hepatic duct. Large multiple sto meredith were removed and at the end of the procedure still there were some large filling defects noted. It was felt that the stones could not be removed with the balloon sweeping and because of this, trape zoid 2.5 size basket was inserted into the common bile duct. Multiple stones were grasped with this lithotripter and crushing was performed. Multiple stones and fragments were removed and it appears t hat there may be some more sludge of more stones left behind in the common bile duct. All of them co uld not be successfully removed at this stage. Hence, over the guidewire, a #10 x 7 [place] type o f endobiliary prosthesis was inserted into the common bile duct across the ampulla into the duodenum. Photographs were obtained and the procedure was terminated. PLAN: Recommend to follow the patient closely. Dictated By: RADHA COLIN/DELIO Conf#: [id number] DID#: [id number]
== END 2019-02-15 19:50 | disposition home or self-care (01) ==
LOC: GIL 12:12
PROVIDERS: ATTEND Internal Medicine Gastroenterology
DX: K80.50 Calculus of bile duct without cholangitis or cholecystitis without obstruction (principal)
CPT/HCPCS: 43264; 43274; 74330; C2617; J1170; J2250; J2370; J2405; J2710; Q9967; Z7512; Z7610

== ENCOUNTER 2019-05-22 00:22 | Emergency (ER) | payer OTHER ==
[~2019-05-22] VITALS: Ht 160 cm; Wt 68.2 kg
[~2019-05-22 00:22] MED LIST changes: +ACET500C5 PO; -HYDR-3601 PO; +ONDA4TAB14 PO; +PRED20TA PO; +RANI300T PO
[2019-05-22 00:25] VITALS: Ht 160 cm; Wt 68.2 kg
[2019-05-22] MEDS ORDERED: SOD CHLORIDE 0.9% 1,000 ML IV STA (00:57)
[2019-05-22] MEDS ORDERED: ONDANSETRON 4 MG INJ IV STA (00:57)
[2019-05-22] MEDS ORDERED: LIDOCAINE/MYLANTA 40 ML BTL PO STA (00:57)
[2019-05-22] MEDS ORDERED: morphine 2 MG INJ IV STA (00:57)
[2019-05-22] MEDS ORDERED: FAMOTIDINE 20 MG INJ IV STA (00:57)
[2019-05-22] MEDS ORDERED: DICYCLOMINE 10 MG CAP PO ONE (01:00)
[2019-05-22 02:37] VITALS: BP 104/71; PULSE 55; RESP 17
== END 2019-05-22 02:35 | disposition home or self-care (01) ==
LOC: FTE 00:22
DX: R10.84 Generalized abdominal pain (principal); R11.2 Nausea with vomiting, unspecified
CPT/HCPCS: 80053; 81001; 81025; 83690; 84702; 85025; J2270; J2405; J7030; Z7610; 36415; 81003; 96374; 96375

== ENCOUNTER 2019-06-21 19:49 | Emergency (ER) | payer OTHER ==
[~2019-06-21] VITALS: Ht 157.5 cm; Wt 69.4 kg
[2019-06-21 20:04] VITALS: Ht 157.5 cm; Wt 69.4 kg
[2019-06-21] MEDS ORDERED: FAMOTIDINE 20 MG INJ IV STA (21:32)
[2019-06-21] MEDS ORDERED: ACETAMINOPHEN 500 MG TAB PO STA (22:20)
[2019-06-21 23:20] VITALS: BP 106/59; PULSE 68; RESP 20
== END 2019-06-21 23:27 | disposition home or self-care (01) ==
LOC: FTE 19:49
DX: R10.13 Epigastric pain (principal)
CPT/HCPCS: 36415; 80053; 81001; 81025; 83690; 84443; 85025; 86308; 93005; 96374; Z7502; Z7610; 81003